=== PATIENT | female | born 1955 | race Caucasian/White ===

== ENCOUNTER 2017-12-14 16:59 | Inpatient (IN) | payer OTHER ==
[2017-12-14 17:05] VITALS: BMI 31.9
[2017-12-14] MEDS ORDERED: SODIUM CHLORIDE 1,000 ML IV STA (18:09)
[2017-12-14] MEDS ORDERED: ACETAMINOPHEN 1000 MG/100 ML VIAL (NON FORMULARY) IVPB ONE (18:09)
[2017-12-14] MEDS ORDERED: SODIUM CHLORIDE FOR INHALATION 3 ML VIAL.NEB IH ONE (18:09)
--- NOTE | 2017-12-14 18:18 | PDOC ---
History of Present Illness - General History Source: Patient Exam Limitations: No Limitations - History of Present Illness Initial Comments: 12/14/17 18:38 The patient is a 62 year old female, with a significant past medical history of hypertension, diabetes, hyperlipidemia, CAD who presents to the emergency department with cough and fever (Tmax 104F) starting yesterday early afternoon. She reports the cough is productive of white sputum and reproduces abdominal discomfort. She states she can not sleep at night secondary to excessive coughing. She reports her had a cough a few weeks ago but states "his was not this bad'. She also reports a "swollen ball" to her right submandibular region. She also reports bilateral ear pain. She reportedly received her vaccinations in October 2017. She denies chest pain, shortness of breath, headache and dizziness. She denies chills, nausea, vomit, diarrhea and constipation. She denies dysuria, frequency , urgency and hematuria. Allergies: NKDA <Angie Reece - Last Filed: 12/14/17 18:44> <Donnell Reynaga - Last Filed: 12/19/17 21:39> - General Chief Complaint: Respiratory Stated Complaint: COUGHING Time Seen by Provider: 12/14/17 17:52 Past History <Angie Reece - Last Filed: 12/14/17 18:44> - Past Medical History Anemia: Yes Asthma: No Cancer: No Cardiac Disorders: Yes CVA: No COPD: No CHF: No Dementia: No Diabetes: Yes GI Disorders: No Disorders: No HTN: Yes Hypercholesterolemia: Yes Liver Disease: No Seizures: No Thyroid Disease: No - Surgical History Abdominal Surgery: No Appendectomy: No Cardiac Surgery: Yes (STENTS) Cholecystectomy: No Lung Surgery: No Neurologic Surgery: No Orthopedic Surgery: Yes (FOOT SURGERY) - Immunization History Immunization Up to Date: Yes (flu / pna ) - Suicide/Smoking/Psychosocial Hx Smoking Status: No Smoking History: Never smoked Have you smoked in the past 12 months: No Number of Cigarettes Smoked Daily: 0 Hx Alcohol Use: No Drug/Substance Use Hx: No Substance Use Type: None Hx Substance Use Treatment: No <Donnell Reynaga - Last Filed: 12/19/17 21:39> - Past Medical History Allergies/Adverse Reactions: Allergies Allergy/AdvReac Type Severity Reaction Status Date / Time No Known Drug Allergies Allergy Verified 12/14/17 17:04 Home Medications: Ambulatory Orders Glipizide 10 mg PO DAILY 01/02/12 Saxagliptin HCl [Onglyza] 5 mg PO HS 01/02/12 Aspirin [ASA -] 81 mg PO DAILY 08/19/12 Insulin Glargine,Hum.rec.anlog [Lantus] 60 unit SCJ HS 08/19/12 Lisinopril [Prinivil] 10 mg PO BID 08/19/12 Amlodipine Besylate 10 mg PO DAILY 12/14/17 Atorvastatin Ca [Lipitor] 80 mg PO HS 12/14/17 Clopidogrel Bisulfate [Plavix -] 75 mg PO DAILY 12/14/17 Ferrous Sulfate 325 mg PO DAILY 12/14/17 Insulin NPH Hum/Reg Insulin Hm [Novolin 70-30 100 Unit/ml Vial] 30 unit SQ DAILY 12/14/17 Metoprolol Succinate [Toprol XL -] 25 mg PO DAILY 12/14/17 Sitagliptin Phosphate [Januvia -] 100 mg PO DAILY 12/14/17 Amox-Tr/K Cl [Augmentin 875-125mg Tablet -] 1 tab PO BID@0800,1730 #20 tablet Clindamycin [Cleocin -] 300 mg PO TID #30 capsule 12/17/17 Furosemide [Lasix -] 40 mg PO DAILY #14 tablet 12/17/17 Review of Systems - Review of Systems Able to Perform ROS?: Yes Comments:: 12/14/17 18:40 GENERAL/CONSTITUTIONAL: (+) fever. No chills. No weakness. HEAD, EYES, EARS, NOSE AND THROAT: (+) bilateral ear pain, no discharge. No change in vision. No ear pain or discharge. No sore throat. CARDIOVASCULAR: No chest pain or shortness of breath. RESPIRATORY: (+) productive cough, No wheezing, or hemoptysis. GASTROINTESTINAL: No nausea, vomiting, diarrhea or constipation. GENITOURINARY: No dysuria, frequency, or change in urination. MUSCULOSKELETAL: No joint or muscle swelling or pain. No neck or back pain. SKIN: No rash NEUROLOGIC: No headache, vertigo, loss of consciousness, or change in strength/ sensation. ENDOCRINE: No increased thirst. No abnormal weight change. HEMATOLOGIC/LYMPHATIC: No anemia, easy bleeding, or history of blood clots. ALLERGIC/IMMUNOLOGIC: No hives or skin allergy. <Angie Reece - Last Filed: 12/14/17 18:44> *Physical Exam - Vital Signs Last Vital Signs Temp Pulse Resp BP Pulse Ox 100.0 F H 108 H 20 147/84 97 12/14/17 17:00 12/14/17 17:00 12/14/17 17:00 12/14/17 17:00 12/14/17 17:00 - Physical Exam Comments: 12/14/17 18:41 GENERAL: Awake, alert, and fully oriented, in no acute distress HEAD: No signs of trauma EYES: PERRLA, EOMI, sclera anicteric, conjunctiva clear ENT: Auricles normal inspection, hearing grossly normal, nares patent, oropharynx clear without exudates. Moist mucosa NECK: (+) Right parotid gland swelling mild tenderness to palpation. Normal ROM , supple, no lymphadenopathy, JVD, or masses LUNGS: Breath sounds equal, clear to auscultation bilaterally. No wheezes, and no crackles HEART: Regular rate and rhythm, normal S1 and S2, no murmurs, rubs or gallops ABDOMEN: Soft, nontender, normoactive bowel sounds. No guarding, no rebound. No masses EXTREMITIES: Normal range of motion, no edema. No clubbing or cyanosis. No cords, erythema, or tenderness NEUROLOGICAL: Cranial nerves II-XII intact. Normal speech, normal gait. Sensation intact in upper and lower extremities. 5/5 motor strength in upper and lower extremities. No pronator drift. Finger to nose intact. Rapid alternations intact. SKIN: Warm, Dry, normal turgor, no rashes or lesions noted. <Angie Reece - Last Filed: 12/14/17 18:44> - Vital Signs Last Vital Signs Temp Pulse Resp BP Pulse Ox 100.0 F H 108 H 20 147/84 97 12/14/17 17:00 12/14/17 17:00 12/14/17 17:00 12/14/17 17:00 12/14/17 17:00 <Donnell Reynaga - Last Filed: 12/19/17 21:39> ED Treatment Course - LABORATORY CBC & Chemistry Diagram: 12/17/17 06:00 12/17/17 06:00 - RADIOLOGY Radiology Studies Ordered: Category Date Time Status CHEST PA & LAT [RAD] Stat Radiology 12/14/17 18:09 Ordered SOFT TISSUE NECK AND HEAD US [US] Stat Ultrasound 12/14/17 18:10 Ordered <Donnell Reynaga - Last Filed: 12/19/17 21:39> Medical Decision Making - Medical Decision Making 12/14/17 18:14 A portion of this note was documented by scribe services under my direction. I have reviewed the details of the note, within reason, and agree with the documentation with the following case summary and management plan written by me. Patient treated in the ED. Nursing notes are reviewed and incorporated into the medical decision-making. Vital signs reviewed. Peripheral IV access obtained by the nurse, laboratory studies are drawn and sent, reviewed and interpreted by myself. Vital Signs Temp Pulse Resp BP Pulse Ox 100.0 F H 108 H 20 147/84 97 12/14/17 17:00 12/14/17 17:00 12/14/17 17:00 12/14/17 17:00 12/14/17 17:00 62-year-old female with past medical history of hypertension, diabetes, hyperlipidemia, coronary disease presents with cough and fever 104 since yesterday. Patient reports some chest congestion and most recently right parotid gland swelling. Reported was mildly tender. Had a positive sick contact with her but not nearly as sick. Patient reports that she has been vaccinated. We'll rule out viral syndrome versus bronchitis versus pneumonia. I suspect the patient also has parotitis. We'll obtain an ultrasound of the gland. Labs including blood cultures. Influenza swab. Reassess. 12/14/17 19:01 Pt signed out to Dr. Vargas for further management and disposition. <Donnell Reynaga - Last Filed: 12/19/17 21:39> *DC/Admit/Observation/Transfer - Attestations Scribe Attestion: 12/14/17 18:42 Documentation prepared by Angie Reece, acting as medical claims analyst for Donnell Reynaga MD, <Angie Reece - Last Filed: 12/14/17 18:44> <Donnell Reynaga - Last Filed: 12/19/17 21:39> Diagnosis at time of Disposition: Sialadenitis, Pulmonary edema, Allergic reaction to contrast dye - Discharge Dispostion Disposition: HOME Condition at time of disposition: Stable
[2017-12-14] MEDS ORDERED: ACETAMINOPHEN INJECTION 100 ML IVPB ONE (18:27)
[2017-12-14] MEDS ORDERED: diphenhydrAMINE HCL 25 MG CAPSULE (FP) PO ONE ×2 (18:50→18:51)
[2017-12-14 19:04] LABS: BASO % 0.3 % (0-2.0); EOS % 2.4 % (0-4.5); HEMATOCRIT 27.4 % (32.4-45.2); HEMOGLOBIN 9.2 GM/dL (10.7-15.3); LYMPH % 9.6 % (8-40); MCH 28.9 pg (25.7-33.7); MCHC 33.7 g/dl (32.0-36.0); MEAN PLT VOLUME 10.2 fl (7.5-11.1); MONO % 6.7 % (3.8-10.2); PLATELET COUNT 169 K/MM3 (134-434); RBC 3.19 M/mm3 (3.60-5.2); RDW 14.9 % (11.6-15.6); WHITE BLOOD COUNT 7.7 K/mm3 (4.0-10.0)
[2017-12-14 19:48] LABS: ALBUMIN 3.2 g/dl (3.4-5.0); ANION GAP 8 (8-16); BLOOD UREA NITROGEN 27 mg/dL (7-18); CALCIUM 7.7 mg/dL (8.5-10.1); CHLORIDE 101 mmol/L (98-107); CO2 23 mmol/L (21-32); POTASSIUM 4.6 mmol/L (3.5-5.1); SODIUM 132 mmol/L (136-145)
[2017-12-14 19:51] LABS: ALK PHOS 105 U/L (45-117); BILIRUBIN,TOTAL 0.5 mg/dL (0.2-1.0); CREATININE 1.1 mg/dL (0.55-1.02); SGOT/AST 64 U/L (15-37); SGPT/ALT 87 U/L (12-78); TOT PROT 6.8 g/dl (6.4-8.2)
[2017-12-14 20:15] LABS: GLUCOSE,RANDOM 319 mg/dL (74-106)
--- NOTE | 2017-12-14 20:46 | PDOC ---
*Physical Exam - Vital Signs Last Vital Signs Temp Pulse Resp BP Pulse Ox 100.0 F H 108 H 20 147/84 98 12/14/17 17:00 12/14/17 17:00 12/14/17 17:00 12/14/17 17:00 12/14/17 18:58 ED Treatment Course - LABORATORY CBC & Chemistry Diagram: 12/15/17 02:45 12/15/17 01:05 - ADDITIONAL ORDERS Additional order review: Laboratory Results 12/14/17 18:18 Sodium 132 L Potassium 4.6 Chloride 101 Carbon Dioxide 23 D Anion Gap 8 BUN 27 H Creatinine 1.1 H Creat Clearance w eGFR 50.17 Random Glucose 319 H* Calcium 7.7 L Total Bilirubin 0.5 D AST 64 H D ALT 87 H D Alkaline Phosphatase 105 Total Protein 6.8 Albumin 3.2 L 12/14/17 18:36 Influenza Types A,B Antigen (ANDREA) - Final Nasopharyngeal Swab - Final 12/14/17 18:18 RBC 3.19 L MCV 86.0 MCHC 33.7 RDW 14.9 D MPV 10.2 Neutrophils % 81.0 D Lymphocytes % 9.6 D Monocytes % 6.7 Eosinophils % 2.4 Basophils % 0.3 - Medications Given in the ED: ED Medications Discontinued Medications Generic Name Dose Route Start Last Admin Trade Name Moriah PRN Reason Stop Dose Admin Acetaminophen 1,000 mg 12/14/17 18:09 12/14/17 19:08 Ofirmev Injection - IVPB 12/14/17 18:10 1,000 mg ONCE ONE Administration Diphenhydramine HCl 25 mg 12/14/17 18:50 12/14/17 19:09 Benadryl - PO 12/14/17 18:51 25 mg ONCE ONE Administration Sodium Chloride 1,000 mls @ 1,000 mls/hr 12/14/17 18:09 12/14/17 19:08 Normal Saline - IV 12/14/17 19:08 1,000 mls/hr ASDIR STA Administration Sodium Chloride 3 ml 12/14/17 18:09 12/14/17 19:08 Normal Saline For Inhalation - IH 12/14/17 18:10 3 ml ONCE ONE Administration Medical Decision Making - Medical Decision Making 12/14/17 20:44 I received pt on signout. Pt comes with submental swelling,on the right side of her face and she has pain at the floor of her mouth; labs show DM blood sugar 300s; LFT minimally elevated - likely viral syndrome. 12/14/17 20:45 CXR clear; US neck pending 12/14/17 20:45 Pt has anemia. MCV and RDW are normal. She will be referred to GI and her PMD to work that up. 12/14/17 20:46 US neck shows nothing conclusive; so she will be semt for a CT soft tissue with contrast: Patient Name: DEVEN PAREKH THIS IS A PRELIMINARY REPORT FROM [facility] EXAM: Soft tissue neck ultrasound IMAGES:20 DATE OF EXAM: 2017-12-14 20:08:30 REASON FOR EXAM: Evaluate parotid gland COMPARISON: None Findings: 3.8 cm x 3.2 cm x 1.8 cm solid-appearing mass in right upper neck with hypervascularity. Its exact location is uncertain on these ultrasound images. Reportedly, it is superior and lateral to the thyroid gland. CT is suggested for further evaluation. THIS DOCUMENT HAS BEEN ELECTRONICALLY SIGNED 12/14/17 23:[address] scan and was complaining of SOB; She had rales bilat throughout. She was at the edge of the bed breathing heavily. We trasferred her to room 10. BiPAP called. 0.3mg subcutaneous epi 1:1000 given, SL NTG 2 given; 1 inch nitropaste given. Kendrick placed with 800 ml urine output; 40mg Lasix given; pt's CXR shows bilat patchy effusion. Unclear if this was all CHF/ overload from the 1L saline she was given or allergic reaction to the IV contrast. Pt will be admitted to the hospitalist. In the end, pt has a submental salivary duct stone: Patient Name: DEVEN PAREKH THIS IS A PRELIMINARY REPORT FROM [facility] EXAM: CT neck with contrast IMAGES:448 DATE OF EXAM: 2017-12-14 23:35:10 REASON FOR EXAM: Rule out mass or abscess COMPARISON: None Findings: *Enlargement of the right submandibular gland with surrounding edema, compatible with sialadenitis. Some of the edema extends to the right parotid gland. No evidence for abscess or fluid collections. Mild bilateral cervical adenopathy and superior mediastinal adenopathy. Left parotid gland, left submandibular gland, and thyroid gland are unremarkable. Larynx and epiglottis, and prevertebral soft tissues appear normal. Atelectasis and fibrotic changes in lungs apices with mild interstitial edema. Mild mucosal thickening in the ethmoid sinuses and maxillary sinuses. THIS DOCUMENT HAS BEEN ELECTRONICALLY SIGNED 12/15/17 01:28 Pt has no salivary duct stones, and no abscesses. 12/15/17 02:12 Pt has CXR that shows bilat patchy effusions. She denies CP at this time, EKG shows normal ST. Minimal elevation os ST in only lead V1 Pt has +trop and elevated CPK. 12/15/17 03:48 Pt likely had an MS earlier, causing her trop, CK and CK to be elevated. MS/ cardiac injury may have resulted in SOB and CHF exacerbation. Pt then went into APE. Likely, she didn't have an adverse reaction to the IV contrast dye, as she has no red rash and no swelling of her throat or tongue. Pt's aPTT is 177; however, the nurse todd the aptt tube after administering the 5000U heparin bolus. Now we will trun off the heparin drip and in 15 minutes, we will check aPTT once again to get an accurate result. 12/15/17 04:21 BNP 1500. Pt has been accepted to tele by hospitalists, but there are no beds. *DC/Admit/Observation/Transfer Diagnosis at time of Disposition: Sialadenitis, Pulmonary edema, Allergic reaction to contrast dye - Discharge Dispostion Condition at time of disposition: Guarded Admit: Yes - Referrals - Patient Instructions - Post Discharge Activity
[2017-12-15] MEDS ORDERED: EPINEPHrine/PF 1 MG/1 ML (1:1,000) AMPULE ONE (00:22)
[2017-12-15] MEDS ORDERED: ALBUTEROL SO4 2.5/IPRATROPIUM 0.5 INH SOL 3 ML VIAL.NEB. NEB ONE (00:23)
[2017-12-15] MEDS ORDERED: NITROGLYCERIN 2% OINTMENT - 1GM PACKET TD ONE ×2 (00:28→02:22)
[2017-12-15] MEDS ORDERED: FUROSEMIDE 40 MG/4 ML INJECTABLE VIAL ONE ×2 (00:28→06:33)
[2017-12-15] MEDS ORDERED: NITROGLYCERIN SUBLINGUAL 1/150 0.4 MG TAB SL ONE (01:00)
[2017-12-15 01:45] LABS: ALBUMIN 3.5 g/dl (3.4-5.0); ANION GAP 12 (8-16); BILIRUBIN,TOTAL 0.4 mg/dL (0.2-1.0); BLOOD UREA NITROGEN 24 mg/dL (7-18); CALCIUM 8.1 mg/dL (8.5-10.1); CHLORIDE 101 mmol/L (98-107); CO2 23 mmol/L (21-32); CREATININE 0.8 mg/dL (0.55-1.02); GLUCOSE,RANDOM 249 mg/dL (74-106); SGPT/ALT 89 U/L (12-78); SODIUM 136 mmol/L (136-145); TOT PROT 7.3 g/dl (6.4-8.2)
[2017-12-15 01:57] LABS: ALK PHOS 100 U/L (45-117)
[2017-12-15 01:59] LABS: POTASSIUM 4.4 mmol/L (3.5-5.1)
[2017-12-15 02:00] LABS: SGOT/AST 89 U/L (15-37)
[2017-12-15] MEDS ORDERED: CLOPIDOGREL BISULFATE 300 MG TABLET PO ONE (02:10)
[2017-12-15] MEDS ORDERED: ASPIRIN 81 MG CHEWABLE TABLETS PO ONE (02:10)
[2017-12-15] MEDS ORDERED: HEPARIN NA (PORCINE) 5,000 UNITS/ML 1ML VIAL IVPUSH PRN ×2 (02:11→10:35)
[2017-12-15] MEDS ORDERED: HEPARIN NA (PORCINE) 5,000 UNITS/ML 1ML VIAL IVPUSH ONE (02:11)
[2017-12-15] MEDS ORDERED: HEPARIN SOD,PORK IN 0.45% NACL 25,000 UNITS/500 ML INFUS.BAG IVPB SCH (02:15)
[2017-12-15] MEDS ORDERED: ASPIRIN 81 MG CHEWABLE TABLETS ONE (02:22)
[2017-12-15] MEDS ORDERED: METOPROLOL TARTRATE 5 MG/5 ML VIAL IVPUSH ONE ×2 (02:22→03:22)
[2017-12-15] MEDS ORDERED: CLOPIDOGREL BISULFATE 300 MG TABLET ONE (02:22)
[2017-12-15] MEDS ORDERED: HEPARIN NA (PORCINE) 5,000 UNITS/ML 1ML VIAL ONE ×2 (02:22→10:32)
[2017-12-15] MEDS ORDERED: METOPROLOL TARTRATE 5 MG/5 ML VIAL ONE ×2 (02:23→03:23)
[2017-12-15] MEDS ORDERED: FUROSEMIDE 40 MG/4 ML INJECTABLE VIAL IVPUSH ONE (02:23)
[2017-12-15] MEDS ORDERED: EPINEPHrine 1:1,000 1 MG/1 ML - 30ML VIAL (INJECTION) SQ ONE (02:23)
[2017-12-15 02:55] LABS: BASO % 0.3 % (0-2.0); EOS % 0.9 % (0-4.5); HEMATOCRIT 29.2 % (32.4-45.2); HEMOGLOBIN 9.7 GM/dL (10.7-15.3); LYMPH % 5.3 % (8-40); MCH 28.6 pg (25.7-33.7); MCHC 33.3 g/dl (32.0-36.0); MEAN CELL VOLUME 85.9 fl (80-96); MEAN PLT VOLUME 10.1 fl (7.5-11.1); MONO % 6.6 % (3.8-10.2); NEUT % 86.9 % (42.8-82.8); PLATELET COUNT 168 K/MM3 (134-434); RDW 15.1 % (11.6-15.6); WHITE BLOOD COUNT 8.3 K/mm3 (4.0-10.0)
--- NOTE | 2017-12-15 03:48 | HP ---
CHIEF COMPLAINT: R LN swollen, fever at home PCP: Dr. Aneta Butcher Other providers - has a [facility] and Vascular surgeon at [facility], but pt can not recall name HISTORY OF PRESENT ILLNESS: 62yo woman originally from [place] (emigrated to [place] in 1969's) with PMH of IDDM, HTN, suspected CHF, CAD s/p TX and 3xstents 2 years ago, vasculopathy with L toe amputations who presents to the ED with acute onset of R submandibular LN swelling and tenderness in the setting of 100.4 fever at home with productive cough. She reports that her was sick recently, and think she caught sick from him. Denies nausea, vomiting, diarrhea, melena, hematochezia. Reports chest pain only with cough; no chest tightness/pressure/discomfort. She reports receiving all her vaccinations, including the Influenza vaccine earlier in the year. While in the ED, she was sent for CT neck with contrast and was given 1L of fluids. After the scan she became short of breath and developed respiratory distress. She received epinephrine due to concern for contrast to allergy. She was placed on BiPAP and given Lasix IV. Recent Travel: No PAST MEDICAL HISTORY: IDDM PVD HTN CAD PAST SURGICAL HISTORY: remote hysterectomy multiple cardiac stents LLE stent L transmetatarsal amputation Social History: Smoking: never Alcohol: denies Drugs: denies Family History: significant cardiac history on maternal side Allergies: No Known Drug Allergies Allergy (Verified 12/14/17 17:04) HOME MEDICATIONS: Home Medications Medication Instructions Recorded Glipizide 10 mg PO DAILY 01/02/12 Saxagliptin HCl [Onglyza] 5 mg PO HS 01/02/12 Aspirin [ASA -] 81 mg PO DAILY 08/19/12 Insulin Glargine,Hum.rec.anlog 60 unit SCJ HS 08/19/12 [Lantus] Lisinopril [Prinivil] 10 mg PO BID 08/19/12 Metformin HCl [Glucophage] 850 mg PO TID 08/19/12 Amlodipine Besylate 10 mg PO DAILY 12/14/17 Atorvastatin Ca [Lipitor] 80 mg PO HS 12/14/17 Clopidogrel Bisulfate [Plavix -] 75 mg PO DAILY 12/14/17 Ferrous Sulfate 325 mg PO DAILY 12/14/17 Insulin NPH Hum/Reg Insulin Hm 30 unit SQ DAILY 12/14/17 [Novolin 70-30 100 Unit/ml Vial] Metoprolol Succinate [Toprol Xl -] 25 mg PO DAILY 12/14/17 Sitagliptin Phosphate [Januvia -] 100 mg PO DAILY 12/14/17 REVIEW OF SYSTEMS CONSTITUTIONAL: +fever, Absent: chills, diaphoresis, generalized weakness, malaise, loss of appetite, weight change HEENT: Absent: rhinorrhea, nasal congestion, throat pain, throat swelling, difficulty swallowing, mouth swelling, ear pain, eye pain, visual changes CARDIOVASCULAR: Absent: chest pain, syncope, palpitations, irregular heart rate, lightheadedness , peripheral edema RESPIRATORY: +cough, sob, trevizo Absent: orthopnea, wheezing, stridor, hemoptysis GASTROINTESTINAL: Absent: abdominal pain, abdominal distension, nausea, vomiting, diarrhea, constipation, melena, hematochezia GENITOURINARY: Absent: dysuria, frequency, urgency, hesitancy, hematuria, flank pain, genital pain MUSCULOSKELETAL: Absent: myalgia, arthralgia, joint swelling, back pain, neck pain SKIN: Absent: rash, itching, pallor HEMATOLOGIC/IMMUNOLOGIC: Absent: easy bleeding, easy bruising, lymphadenopathy, frequent infections ENDOCRINE: Absent: unexplained weight gain, unexplained weight loss, heat intolerance, cold intolerance NEUROLOGIC: Absent: headache, focal weakness or paresthesias, dizziness, unsteady gait, seizure, mental status changes, bladder or bowel incontinence PSYCHIATRIC: Absent: anxiety, depression, suicidal or homicidal ideation, hallucinations. PHYSICAL EXAMINATION Vital Signs - 24 hr 12/14/17 12/14/17 12/15/17 17:00 18:58 00:30 Temperature 100.0 F H Pulse Rate 108 H Respiratory 20 Rate Blood Pressure 147/84 O2 Sat by Pulse 97 98 100 Oximetry (%) 12/15/17 12/15/17 02:30 03:38 Temperature Pulse Rate Respiratory Rate Blood Pressure 182/81 131/55 O2 Sat by Pulse Oximetry (%) GENERAL: nad, on BiPAP, looks comfortable, aaox3 HEAD: Normal with no signs of trauma. EYES: PERRLA, EOMI, sclera anicteric, conjunctiva clear ENT: oropharynx clear without exudates. Moist mucous membranes. NECK: supple, right submandibular LN enlarged, very ttp, no JVD LUNGS: bilateral rales, no accessory muscle use HEART: rrr, normal s1/s2, no m/r/g ABDOMEN: obese, soft, ntnd, normoactive bowel sounds : meza catheter draining light yellow urine, no sediment UPPER EXTREMITIES: 2+ radial pulses, wwp, no edema. LOWER EXTREMITIES: chronic venous stasis, 2+ DP pulses, wwp, 2+ pedal edema L>R , L transmetatarsal amputation with preservation of 5th metatarsal NEUROLOGICAL: Cranial nerves II-XII intact. Normal speech. no facial droop, 5/ 5 motor strength in all four extremities, sensation intact CBC, BMP 12/15/17 02:45 12/15/17 01:05 Hepatic Panel Total Bilirubin 0.4 mg/dL (0.2-1.0) 12/15/17 01:05 AST 89 U/L (15-37) H D 12/15/17 01:05 ALT 89 U/L (12-78) H 12/15/17 01:05 Alkaline Phosphatase 100 U/L (45-117) 12/15/17 01:05 Albumin 3.5 g/dl (3.4-5.0) 12/15/17 01:05 IMAGING: CT neck (preliminary read): Enlargement of the right submandibular gland with surrounding edema, compatible with sialadenitis. Some of the edema extends to the right parotid gland. No evidence for abscess or fluid collections. CXR: interval increase in pulmonary congestion on second radiograph, no e/o focal consolidations or pleural effusions EKG: NSR, poor R wave progression Active Medications Furosemide (Lasix Injection -) 40 mg IVPUSH BID@0600,1400 GAUDENCIO Last Admin: 12/15/17 06:56 Dose: 40 mg Heparin Sodium (Porcine) (Heparin -) 1,000 unit IVPUSH PRN PRN PRN Reason: Heparin HEPARIN SOD,PORK IN 0.45% NACL (Heparin-1/2ns 25,000 Units/500) 25,000 units in 500 mls @ 20 mls/hr IVPB TITR GAUDENCIO; 1,000 UNITS/HR PRN Reason: Protocol Last Titration: 12/15/17 03:41 Dose: 800 units/hr, 16 mls/hr Azithromycin 500 mg/ Dextrose 250 mls @ 250 mls/hr IVPB DAILY GAUDENCIO Last Admin: 12/15/17 06:57 Dose: 250 mls/hr CEFTRIAXONE 1 G/50 ML PREMIX (Ceftriaxone 1 Gm-D5w Bag) 50 mls @ 100 mls/hr IVPB DAILY GAUDENCIO Last Admin: 12/15/17 06:57 Dose: 100 mls/hr Insulin Aspart (Novolog Vial Sliding Scale -) 1 vial SQ TIDAC GAUDENCIO PRN Reason: Protocol Last Admin: 12/15/17 07:39 Dose: 8 unit ASSESSMENT/PLAN: 62yo woman with PMH of IDDM, HTN, CAD s/p TX/stents, suspected CHF, PVD who p/w low grade fever (100.4) and enlarged, exquisitely tender R submandibular LN likely 2/2 to recent URI symptoms and found to have elevated troponins in the setting suspected CHF exacerbation. #CHF exacerbation, appears volume overloaded -ECHO -repeat BNP -Aroldo strict I&Os, daily weights -Lasix 40mg IVP BID -Confirm home med doses - restart Metoprolol, lisinopril, Norvasc #r/o NSTEMI, elevated troponins likely 2/2 to CHF exacerbation, no acute ST changes on EKG, absent chest pain/discomfort In ED s/p ASA, Plavix, and heparin -Cardiology consulted -c/w heparin gtt -Repeat EKG in AM -trend trops to peak #sob, fever - possible URI with superimposed PNA, Flu neg -Trend WBC, fever curve -Infectious w/u: urine Ag for PNA, Respiratory viral panel, urine/blood/sputum Cx -Ceftriaxone and Azithromycin for CAP and atypical coverage -O2 therapy PRN #submandibular gland enlargement/ttp -r/o mumps -HIV testing #transaminitis - 2/2 to congestion vs infectious etiology -Abdominal U/S -hepatic panel #CAD s/p stents -cont ASA, Plavix, Lipitor #IDDM -Hold home meds -Levemir 20mg in AM + ISS/BGM TIDAC #guaiac postive stool - pt on home Fe supplements; monitor H&H for now #FEN: PO hydration / lytes wnl / Na controlled, DM diet #DVT PPX - on heparin gtt d/w Dr. Ximena Esparza MD PGY1 - Internal Medicine Visit type - Emergency Visit Emergency Visit: Yes ED Registration Date: 12/15/17 Care time: The patient presented to the Emergency Department on the above date and was hospitalized for further evaluation of their emergent condition. - New Patient This patient is new to me today: Yes Date on this admission: 12/15/17 - Critical Care Critical Care patient: No
--- NOTE | 2017-12-15 04:19 | PN ---
Teaching Attending Note Name of Resident: Nathaly Esparza ATTENDING PHYSICIAN STATEMENT I saw and evaluated the patient. Chart, data, imaging reviewed. I reviewed the resident's note and discussed the case with the resident. I agree with the resident's findings and plan as documented. SUBJECTIVE: 62yo woman with HTN, uncontrolled DM, PVD s/o multiple toes amputations, CAD s/ p multiple stent placement 2 years ago came to hospital complaining of fevers, and right sided submandibular swelling and tenderness for about 1-2 days. She reports that her was recently sick and thinks that she may have gotten sick from him. Patient was sent to CT scan of neck, received one liter of IV fluid and subsequently developed respiratory distress, given epinephrine sc due to fear of allergic reaction to contrast. Subseqently c/o some chest pain/ discomfort. Appears to be more comfortable in sitting position. OBJECTIVE: Last Vital Signs Temp Pulse Resp BP Pulse Ox 100.0 F H 108 H 20 131/55 100 12/14/17 17:00 12/14/17 17:00 12/14/17 17:00 12/15/17 03:38 12/15/17 00:30 general- appears mildly uncomfortable, nontoxic heent -no sinus tenderness right submandibular LN very tender to palpation neck -supple, no jvd cv - s1+ s2+ rrr chest- crackles appreciated b/l upon chest auscultation abdomen- obese, nontender, BS+ skin- no rashes appreciated Ext- B/l pedal edema 2+ Meza catheter + Abnormal Lab Results 12/14/17 12/14/17 12/15/17 18:18 18:18 01:05 RBC 3.19 L Hgb 9.2 L D Hct 27.4 L D Neutrophils % Lymphocytes % PTT (Actin FS) Sodium 132 L BUN 27 H 24 H Creatinine 1.1 H Random Glucose 319 H* 249 H Calcium 7.7 L 8.1 L AST 64 H D 89 H D ALT 87 H D 89 H Creatine Kinase 1190 H CK-MB (CK-2) 7.386 H Troponin I 0.21 H B-Natriuretic Peptide Albumin 3.2 L 12/15/17 12/15/17 12/15/17 02:45 02:45 02:45 RBC 3.40 L Hgb 9.7 L Hct 29.2 L Neutrophils % 86.9 H Lymphocytes % 5.3 L D PTT (Actin FS) 177.7 H Sodium BUN Creatinine Random Glucose Calcium AST ALT Creatine Kinase CK-MB (CK-2) Troponin I B-Natriuretic Peptide 1576.[address] of neck- Enlargement of the right submandibular gland with surrounding edema , compatible with sialadenitis. Some of the edema extends to the right parotid gland. No evidence for abscess or fluid collections. CXR - second cxr appears to have increased b/l pulmonary edema with pulmonary vascular congestion compared to first one ekg- nsr, poor r wave progression ASSESSMENT AND PLAN: #Likely viral URI wit possible superimposed PNA. Tmax at home was clarified to be 100.4F and not 104F. Likely contracted viral URI from . Right tender LN may be 2/2 viral URI. Unlikely to be mumps since patient reports receiving all her routine vaccinations. -blood cultures x2 -UA, urine culture -nasalpharyngeael PCR for viruses -sputum culture -urine legionella antigen -azithromycin 500mg po daily -ceftriaxone 1g IV daily -Mumps IgG , IgM pending to r/o acute infection, although unlikely #Possible NSTEMI. likely CHF exacerbation after IV fluid infusion. Known CAD with presumed baseline CHF, although we have no EKG on file. Mildly positive troponin. CLinical improvement after IV furosemide. -ASA -Clopidogrel -Bblocker -ACEi -furosemide 40mg IV bid -2g Na diet -transthoracic echo -2g Na diet -1 liter fluid restriction -agree with meza -I/O -daily weights -cardiology evaluation -repeat CXR #Uncontrolled DM -tight insulin sliding scale -baseline long acting insulin -A1c #Right sided submandibular swelling- may be viral, r/o stone impaction -if no resolution with time, consider ENT evaluation for stone impaction #DVT ppx- already on heparin drip #Diet - 2g Na, Diabetic diet
[2017-12-15 05:10] LABS: URINE APPEARANCE SLCLOUDY; URINE BILIRUBIN NEGATIVE (NEGATIVE); URINE BLOOD 2+ (NEGATIVE); URINE COLOR LTYELLOW; URINE GLUCOSE (UA) NEGATIVE (NEGATIVE); URINE KETONE NEGATIVE (NEGATIVE); URINE LEUK ESTERASE NEGATIVE (NEGATIVE); URINE NITRITE NEGATIVE (NEGATIVE); URINE PROTEIN NEGATIVE (NEGATIVE); URINE UROBILINOGEN NEGATIVE mg/dL (0.2-1.0)
[2017-12-15 05:12] LABS: URINE BACTERIA FEW /hpf (NONE SEEN); URINE MUCUS RARE
[2017-12-15] MEDS ORDERED: FUROSEMIDE 40 MG/4 ML INJECTABLE VIAL IVPUSH SCH (06:00)
[2017-12-15] MEDS ORDERED: CEFTRIAXONE 1 G/50 ML PREMIX 50 ML IVPB SCH (06:30)
[2017-12-15] MEDS ORDERED: AZITHROMYCIN IVPB 500 MG in DEXTROSE 5%-WATER - 250 ML IVPB SCH (06:30)
[2017-12-15] MEDS ORDERED: AZITHROMYCIN IVPB 250 ML IVPB ONE (06:33)
[2017-12-15] MEDS ORDERED: CEFTRIAXONE 1 GM/50 ML BAG ONE (06:33)
[2017-12-15] MEDS: INSULIN SLIDING SCALE (NOVOLOG) 1 VIAL SQ SCH ×3 (07:39→17:36)
[2017-12-15] MEDS ORDERED: INSULIN (NOVOLOG) ASPART 100 UNITS/ML 10ML VIAL ONE ×3 (07:41→17:37)
[2017-12-15] MEDS ORDERED: INSULIN DETEMIR 100 UNITS/ML MDV SQ ONE ×3 (08:46→21:58)
--- NOTE | 2017-12-15 09:10 | PN ---
Progress Note (short form) - Note Progress Note: Subjective: reports fever 104 at home . fever in ER. SOB is better now , but has chest tightness which started before coming to hospital and improved now . reprots LE edema. Objective: Vital Signs: Last Vital Signs Temp Pulse Resp BP Pulse Ox 98.6 F 95 H 20 133/67 98 12/15/17 07:10 12/15/17 07:10 12/15/17 07:10 12/15/17 07:10 12/15/17 07:10 I&O: Intake & Output 12/12/17 12/13/17 12/14/17 12/15/17 23:59 23:59 23:59 23:59 Intake Total 1500 Output Total 2400 Balance -900 Weight 198 lb Physical Exam: NAD HEENT: R submandibular erythema , tenderness and mass like bulge . No LAP in L . parotids are nl. MMM, no JVD , no facial droop, EOMI, round equal pupils Cv : RRR, 2/6 Sm at USB, NO JVD Lungs : decreased air entry at bases , minimal crackles at bases . Ext : 2+ pitting edema . amputation of 1st 4 toes on L Abd:soft, Nt, ND , NL BS Assessment/Plan: 62 y/o lady with HTN, IDDM , CAD , s/p [place], and stents, and other medical problems who presented with fever , and R submandibular swelling . She was found to have saialdenitis . Also developed pulm edema in Er after IVF , and trop elevation after sq Epi 1- Sialadenitis : could be bacterial given her high fever at home. - dc ceftriaxone and azithro and give unasyn . - follow blood cx - ID for Abx 2- Acute CHD exacerbation , not clear systolic or diastolic yet. developed after IVF administration , but has been having LE edema at home. suspect chronic component - given IV lasix and improved - I&O - 900 cc after 40 of lasix - give 40 of IV lasix - strict I&O - weight - Echo tomorrow - cont her BB , and ACEI - card 3- NSTEMI: - EKG after CT scan , showed minimal ST depression in I . no TWI, and NSR with NL axis - trop elevated but stabilized - check trop at 12 - cont ASa and plavix - was started on heparin gtt, cont until evaluate by card. - repeat EKG 4- NAEL : resolved 5- transaminitis : likely due to hepatic congestion . - monitor on diuresis 6- IDDM : her regimen was confirmed. - give levemir twice a day now . - SSI 7- HTN: cont lisinopril and toprol HLOC Visit type - Emergency Visit Emergency Visit: Yes ED Registration Date: 12/15/17 Care time: The patient presented to the Emergency Department on the above date and was hospitalized for further evaluation of their emergent condition. - New Patient This patient is new to me today: No - Critical Care Critical Care patient: No
[2017-12-15 09:32] LABS: INR 1.09 (0.82-1.09); PROTHROMBIN TIME (PATIENT) 12.3 SEC (9.98-11.88)
[2017-12-15 09:34] LABS: ACTIVATED PTT 38.9 SECONDS (26.9-34.4)
[2017-12-15] MEDS ORDERED: CEFTRIAXONE 1 GM in DEXTROSE 5%-WATER - 50 ML IVPB SCH (10:00)
[2017-12-15] MEDS ORDERED: amLODIPine BESYLATE 10 MG TABLET (FP) PO SCH (10:00)
[2017-12-15] MEDS ORDERED: METOPROLOL SUCCINATE 25 MG TAB.SR.24H (FP) PO SCH (10:00)
[2017-12-15] MEDS ORDERED: LISINOPRIL 10 MG TABLET (FP) PO SCH (10:00)
[2017-12-15] MEDS: CLOPIDOGREL BISULFATE 75 MG TABLET (FP) PO SCH (10:45)
[2017-12-15] MEDS: AMPICILLIN NA/SULBACTAM NA 3 GM in SODIUM CHLORIDE 100 ML IVPB SCH ×2 (10:49→18:38)
[2017-12-15] MEDS ORDERED: CLOPIDOGREL BISULFATE 75 MG TABLET (FP) ONE (10:51)
[2017-12-15] MEDS ORDERED: METOPROLOL SUCCINATE 50 MG TAB.SR.24H (FP) ONE (10:51)
[2017-12-15 11:07] LABS: HEMATOCRIT 29.2 % (32.4-45.2); HEMOGLOBIN 9.5 GM/dL (10.7-15.3); MCH 27.8 pg (25.7-33.7); MCHC 32.5 g/dl (32.0-36.0); MEAN CELL VOLUME 85.6 fl (80-96); PLATELET COUNT 170 K/MM3 (134-434); RBC 3.41 M/mm3 (3.60-5.2); RDW 14.9 % (11.6-15.6); WHITE BLOOD COUNT 7.1 K/mm3 (4.0-10.0)
--- NOTE | 2017-12-15 11:23 | CON.ID ---
Consult Consult Specialty:: infectious diseases Reason for Consultation:: submandibular swelling - History of Present Illness Chief Complaint: pain and swelling below the submandibular region History of Present Illness: 62yo woman ) with PMH of IDDM, HTN, suspected CHF, CAD s/p MS and 3xstents 2 years ago, vasculopathy with L toe amputations who presents to the ED with acute onset of R submandibular LN swelling and tenderness in the setting of 100.4 fever at home with productive cough. events noted in the emergency room from yesterday currently patient is stable but the swelling is very tender and swollen does not complain of any other issues at this point - History Source History Provided By: Patient Limitations to Obtaining History: No Limitations - Past Medical History Cardio/Vascular: Yes: HTN Endocrine: Yes: Diabetes Mellitus Dermatology: Yes: Other (Ulcer left foot) - Past Surgical History Past Surgical History: Yes: Amputation (2nd toes DIP joint B/L) - Alcohol/Substance Use Hx Alcohol Use: No - Smoking History Smoking history: Never smoked Have you smoked in the past 12 months: No Aproximately how many cigarettes per day: 0 Home Medications - Allergies Allergies/Adverse Reactions: Allergies Allergy/AdvReac Type Severity Reaction Status Date / Time No Known Drug Allergies Allergy Verified 12/14/17 17:04 - Home Medications Home Medications: Ambulatory Orders Glipizide 10 mg PO DAILY 01/02/12 Saxagliptin HCl [Onglyza] 5 mg PO HS 01/02/12 Aspirin [ASA -] 81 mg PO DAILY 08/19/12 Insulin Glargine,Hum.rec.anlog [Lantus] 60 unit SCJ HS 08/19/12 Lisinopril [Prinivil] 10 mg PO BID 08/19/12 Metformin HCl [Glucophage] 850 mg PO TID 08/19/12 Amlodipine Besylate 10 mg PO DAILY 12/14/17 Atorvastatin Ca [Lipitor] 80 mg PO HS 12/14/17 Clopidogrel Bisulfate [Plavix -] 75 mg PO DAILY 12/14/17 Ferrous Sulfate 325 mg PO DAILY 12/14/17 Insulin NPH Hum/Reg Insulin Hm [Novolin 70-30 100 Unit/ml Vial] 30 unit SQ DAILY 12/14/17 Metoprolol Succinate [Toprol Xl -] 25 mg PO DAILY 12/14/17 Sitagliptin Phosphate [Januvia -] 100 mg PO DAILY 12/14/17 Review of Systems - Review of Systems Constitutional: reports: Fever Eyes: reports: No Symptoms HENT: reports: Difficult Swallowing, Toothache, Other Neck: reports: No Symptoms Cardiovascular: reports: No Symptoms Respiratory: reports: No Symptoms Gastrointestinal: reports: No Symptoms Genitourinary: reports: No Symptoms Musculoskeletal: reports: No Symptoms Integumentary: reports: No Symptoms Neurological: reports: No Symptoms Endocrine: reports: No Symptoms Hematology/Lymphatic: reports: No Symptoms Psychiatric: reports: No Symptoms Physical Exam Vital Signs: Vital Signs Temperature 98.6 F 12/15/17 07:10 Pulse Rate 84 12/15/17 10:44 Respiratory Rate 18 12/15/17 10:44 Blood Pressure 129/52 12/15/17 10:44 O2 Sat by Pulse Oximetry (%) 98 12/15/17 10:44 Constitutional: Yes: Well Nourished, Calm, Moderate Distress Eyes: Yes: Conjunctiva Clear HENT: Yes: Other (rt submandibular swelling associated wiht tenderness and erythema) Neck: Yes: Supple, Trachea Midline Cardiovascular: Yes: Regular Rate and Rhythm Respiratory: Yes: Regular, CTA Bilaterally Gastrointestinal: Yes: Normal Bowel Sounds, Soft Musculoskeletal: Yes: WNL Extremities: Yes: WNL Neurological: Yes: Alert, Oriented Psychiatric: Yes: Alert, Oriented Labs: CBC, BMP 12/15/17 10:51 12/15/17 01:05 Imaging - Results Cat Scan: Report Reviewed, Image Reviewed Ultrasound: Report Reviewed, Image Reviewed Assessment/Plan Problem List - Problems (1) Sialadenitis. Code(s): K11.20 - SIALOADENITIS, UNSPECIFIED fever cause exactly not known patient has been started on unasyn plan continue unasyn will add clinda hydration ent to see the patient rest as per primary team
[2017-12-15 12:08] LABS: ALBUMIN 3.3 g/dl (3.4-5.0); ALK PHOS 80 U/L (45-117); ANION GAP 8 (8-16); BILIRUBIN,TOTAL 0.4 mg/dL (0.2-1.0); BLOOD UREA NITROGEN 25 mg/dL (7-18); CALCIUM 8.2 mg/dL (8.5-10.1); CHLORIDE 100 mmol/L (98-107); CO2 26 mmol/L (21-32); CREATININE 1.1 mg/dL (0.55-1.02); GLUCOSE,RANDOM 229 mg/dL (74-106); POTASSIUM 4.1 mmol/L (3.5-5.1); SGOT/AST 112 U/L (15-37); SGPT/ALT 98 U/L (12-78); SODIUM 134 mmol/L (136-145); TOT PROT 7.8 g/dl (6.4-8.2)
[2017-12-15] MEDS: CLINDAMYCIN 300 MG PREMIX IVPB 300 MG/50 ML BAG IVPB SCH ×2 (12:16→18:23)
[2017-12-15] MEDS ORDERED: ACETAMINOPHEN INJECTION 100 ML IVPB ONE (13:44)
[2017-12-15] MEDS ORDERED: ACETAMINOPHEN 160 MG/5 ML *Children Solution PO ONE (13:47)
--- NOTE | 2017-12-15 14:14 | PN ---
Progress Note (short form) - Note Progress Note: Chief Complaint: Events noted, notes reviewed, denies any further chest pain but reports persistent dyspnea, although severity of which has decreased, continues to report persistence of sub-mandibular salivary gland discomfort History of Present Illness: Seen and examined on telemetry. Full consult dictated Medications: Current Medications Acetaminophen (Tylenol *Children Solution* -) 650 mg PO ONCE ONE Stop: 12/15/17 13:48 Amlodipine Besylate (Norvasc -) 10 mg PO DAILY [facility] Last Admin: 12/15/17 10:49 Dose: Not Given Aspirin (Ecotrin -) 81 mg PO DAILY [facility] Atorvastatin Calcium (Lipitor -) 80 mg PO HS [facility] Clopidogrel Bisulfate (Plavix -) 75 mg PO DAILY [facility] Last Admin: 12/15/17 10:45 Dose: 75 mg Furosemide (Lasix Injection -) 40 mg IVPUSH DAILY [facility] Ampicillin Sodium/Sulbactam (Sodium 3 gm/ Sodium Chloride) 100 mls @ 200 mls/ hr IVPB Q8H-IV [facility] Last Admin: 12/15/17 10:49 Dose: 200 mls/hr Clindamycin Phosphate (Cleocin 300 Mg Premix Ivpb) 300 mg in 50 mls @ 100 mls/ hr IVPB Q8H-IV [facility] Last Admin: 12/15/17 12:16 Dose: 100 mls/hr Insulin Aspart (Novolog Vial Sliding Scale -) 1 vial SQ TIDAC [facility] PRN Reason: Protocol Last Admin: 12/15/17 11:30 Dose: 4 unit Insulin Detemir (Levemir Vial) 20 units SQ AM [facility] Insulin Detemir (Levemir Vial) 30 units SQ HS [facility] Lisinopril (Prinivil) 10 mg PO BID [facility] Last Admin: 12/15/17 10:49 Dose: Not Given Metoprolol Succinate (Toprol Xl -) 25 mg PO DAILY [facility] Last Admin: 12/15/17 10:49 Dose: 25 mg Review of Systems Cardiovascular: As noted above Respiratory: denies: denies: Cough or Sputum Production Gastrointestinal: denies: Nausea, vomiting, Diarrhea, Constipation and Abdominal Discomfort Musculoskeletal: No Symptoms Reported Endocrine: No Symptoms Reported Vital Signs: Last Vital Signs Temp Pulse Resp BP Pulse Ox 102.1 F H 86 20 133/60 100 12/15/17 12:28 12/15/17 11:59 12/15/17 11:59 12/15/17 11:59 12/15/17 11:59 Intake & Output 12/12/17 12/13/17 12/14/17 12/15/17 23:59 23:59 23:59 23:59 Intake Total 1500 Output Total 2400 Balance -900 Weight 198 lb 198 lb Constitutional: No Distress, Calm Neck: Supple Negative JVD Respiratory: Diminished Breath Sounds Bilaterally Cardiovascular: S1 S2 Regular Rate Rhythm Grade 1-2/6 ROSALIO Gastrointestinal: Soft Benign Normal Bowel Sounds Ext: Trace Edema 1-2+ Bilateral Distal Pulses Labs: CBC, BMP 12/15/17 10:51 12/15/17 11:37 Hepatic Panel Total Bilirubin 0.4 mg/dL (0.2-1.0) 12/15/17 11:37 AST 112 U/L (15-37) H D 12/15/17 11:37 ALT 98 U/L (12-78) H 12/15/17 11:37 Alkaline Phosphatase 80 U/L (45-117) D 12/15/17 11:37 Albumin 3.3 g/dl (3.4-5.0) L 12/15/17 11:37 Troponin, BNP 12/15/17 12/15/17 12/15/17 01:05 02:45 06:05 Troponin I 0.21 H 0.21 H B-Natriuretic Peptide 1576.27 H 12/15/17 11:37 Troponin I 0.23 H B-Natriuretic Peptide Assessment/Plan ASSESSMENT: 1. CAD post CO/PCI/Stent angina pectoris with evidence of demand ischemic injury in context of 2. Acute on chronic class II-III NYHA classification LV congestive heart failure , precipitated by volume overload (IV fluids, IV contrast) and ischemia post Epinephrine administration 3. Heart murmur related to aortic valve disease/sclerosis 4. HTN 5. DM 6. Hypercholesterolemia 7. 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 Sub-mandibular gland inflammation/infection 9. CKD 10. Abnormal liver function testing 11. Anemia PLAN: 1. Continue ASA +/- Plavix with caution but D/C Heparin 2. Continue Norvasc but decrease dosage 3. Continue Prinivil with caution and close monitoring of renal function 4. Continue Toprol XL 5. Continue Lipitor, if LFT's remain abnormal therapy may need to be withheld 6. Continue IV Lasix with caution and close monitoring of renal function 7. Echocardiography to evaluate LV size and function and the above noted valvular pathology Thank you for the consult Rishabh Wong M.D.
[2017-12-15] MEDS ORDERED: METOPROLOL SUCCINATE 50 MG TAB.SR.24H (FP) PO SCH (15:03)
[2017-12-15] MEDS ORDERED: amLODIPine BESYLATE 5 MG TABLET (FP) PO SCH (15:03)
[2017-12-15] MEDS ORDERED: ACETAMINOPHEN 650 MG/20.3 ML ORAL SOLUTION (CUPS) PO ONE (15:15)
--- NOTE | 2017-12-15 17:21 | CONS ---
DATE OF CONSULTATION: 12/15/2017 CONSULTATION REQUESTED BY: Hospitalist. CHIEF COMPLAINT: Chest discomfort, dyspnea, cardiovascular evaluation. A 62-year-old female of descent, with known history of coronary artery disease, status post myocardial infarction, status post percutaneous coronary intervention and stenting, angina pectoris, systolic/diastolic left ventricular dysfunction with chronic class 0 to 1 [place] [employer] classification left ventricular failure, hypertensive cardiovascular disease, diabetes mellitus, hypercholesterolemia, who presented to [facility] Emergency Room with fever, cough productive of white sputum, and in addition, submandibular swelling. Patient, during CT scan of the neck with contrast, had acute respiratory distress, dyspnea, and was thought to be an allergic reaction to contrast, at which point epinephrine was administered, subsequent to which patient reported chest discomfort and persistence of dyspnea and, in addition, she was noted to have elevated troponin I suggestive of acute coronary syndrome. Patient currently denies any chest discomfort but continues to report persistence of dyspnea, although severity of which has decreased. Patient continues to report persistence of submandibular swelling and difficulty swallowing. Patient denies any orthopnea or paroxysmal nocturnal dyspnea. Patient reports intermittent bilateral lower extremity edema that worsens in the latter part of the day. Patient denies any palpitation, dizziness, lightheadedness, or syncope. Patient reports fatigue and tiredness. Patient is followed by [facility]. Patient, in addition, has known history of peripheral vascular disease post peripheral intervention and post toe amputation. PAST MEDICAL HISTORY: Coronary artery disease, status post myocardial infarction, status post percutaneous coronary intervention and stenting, angina pectoris, systolic/diastolic left ventricular dysfunction with class 0 to 1 [place] [employer] classification left ventricular failure, hypertensive cardiovascular disease, diabetes mellitus, hypercholesterolemia, peripheral vascular disease, post peripheral percutaneous intervention, stenting, post toe amputation. SOCIAL HISTORY: Nonsmoker. FAMILY HISTORY: Positive coronary artery disease. ALLERGIES: None reported. Medical therapy at home included Norvasc 10 mg once a day, Ecotrin 81 mg once a day, Lipitor 80 mg once a day, Plavix 75 mg once a day, ferrous sulfate 325 mg once a day, glipizide 10 mg once a day, insulin as prescribed, lisinopril 10 mg twice a day, metformin 850 mg 3 times a day, Toprol XL 25 mg once a day, Onglyza 5 mg once a day, Januvia 100 mg once daily. REVIEW OF SYSTEMS: Head and Neck: Denies headache, photophobia, blurring of vision. Respiratory: Cough productive of clear sputum. Cardiovascular: As noted above. Gastrointestinal: Denies nausea, vomiting, diarrhea, but reported abdominal discomfort. Genitourinary: No symptoms reported. Musculoskeletal: No symptoms reported. PHYSICAL EXAMINATION: Vital Signs: Blood pressure is 133/60 mmHg. Pulse rate is 86 beats per minute. Temperature 102.1 Fahrenheit. Head and Neck: Pupils equal, react to light and accommodation. Extraocular muscles intact. Anicteric sclerae. Negative JVD. Bilateral soft carotid bruit. Submandibular swelling and redness was noted. Chest: Diminished breath sounds at the bases bilaterally. Cardiovascular: S1, S2 regular. Grade 1 to 2/6 systolic ejection murmur. Abdomen: Soft, benign. Normoactive bowel sound. Extremities: Trace edema, 1 to 2+ bilateral distal pulses. EKG revealed sinus rhythm with anteroseptal wall myocardial infarction and ST-segment abnormality suggestive of ischemia. Chest x-ray was noted. CBC revealed a white cell count 7.1, hemoglobin 9.5, platelets 170. Basic metabolic profile revealed a sodium 134, potassium 4.1, BUN 25, creatinine 1.1, glucose 229, AST 112, ALT 98. Troponin 0.12, most recent one is 0.23. B-type natriuretic peptide was 1576. ASSESSMENT: 1. Coronary artery disease post myocardial infarction, post percutaneous coronary intervention and stenting, angina pectoris with evidence of demand ischemic injury in context of number 2. 2. Acute on chronic class 2 to 3 [place] [employer] classification left ventricular failure precipitated by volume overload, IV fluids and IV contrast, and probable ischemia induced by epinephrine administration. 3. Heart murmur, most likely related to aortic valve disease, aortic valve sclerosis. 4. Hypertensive cardiovascular disease. 5. Diabetes mellitus. 6. Hypercholesterolemia. 7. Peripheral vascular disease post toe amputation post percutaneous intervention, stenting. 8. Submandibular gland inflammation/infection. 9. Chronic kidney disease. 10. Abnormal liver function testing. 11. Anemia. RECOMMENDATION: 1. Continuation of aspirin plus/minus Plavix with caution but heparin intravenous drip was discontinued, initiated in the emergency room. 2. Continuation of Norvasc but decreasing dosage. 3. Continuation of Prinivil with caution and close monitoring of renal function. 4. Continuation of Toprol XL therapy. 5. Continuation of Lipitor therapy with caution, considering the above- noted abnormal liver function testing. 6. Continue IV Lasix with caution and close monitoring of renal function. 7. Echocardiography for evaluation of left ventricular systolic function and valvular pathology. Thank you for the kind referral. DENISE ADAMES M.D. [id number]
[2017-12-15] MEDS ORDERED: diphenhydrAMINE HCL 25 MG CAPSULE (FP) PO ONE ×2 (21:40→21:43)
[2017-12-15] MEDS ORDERED: ATORVASTATIN CA 80 MG TABLET (FP) ONE (21:43)
[2017-12-15] MEDS ORDERED: ATORVASTATIN CA 80 MG TABLET (FP) PO SCH (22:00)
[2017-12-15] MEDS ORDERED: INSULIN DETEMIR 100 UNITS/ML MDV SQ SCH (22:00)
[2017-12-16] MEDS: CLINDAMYCIN 300 MG PREMIX IVPB 300 MG/50 ML BAG IVPB SCH ×3 (02:30→18:17)
[2017-12-16] MEDS: AMPICILLIN NA/SULBACTAM NA 3 GM in SODIUM CHLORIDE 100 ML IVPB SCH ×3 (02:30→18:17)
[2017-12-16] MEDS ORDERED: INSULIN DETEMIR 100 UNITS/ML MDV SQ SCH ×2 (07:00→22:00)
[2017-12-16] MEDS: INSULIN SLIDING SCALE (NOVOLOG) 1 VIAL SQ SCH ×3 (07:56→16:18)
[2017-12-16] MEDS ORDERED: INSULIN DETEMIR 100 UNITS/ML MDV SQ ONE (07:57)
[2017-12-16] MEDS ORDERED: INSULIN (NOVOLOG) ASPART 100 UNITS/ML 10ML VIAL ONE ×2 (07:58→12:00)
[2017-12-16 08:12] LABS: BASO % 0.5 % (0-2.0); EOS % 3.9 % (0-4.5); HEMATOCRIT 27.4 % (32.4-45.2); LYMPH % 23.3 % (8-40); MCH 27.8 pg (25.7-33.7); MCHC 32.7 g/dl (32.0-36.0); MEAN PLT VOLUME 9.8 fl (7.5-11.1); MONO % 13.9 % (3.8-10.2); NEUT % 58.4 % (42.8-82.8); PLATELET COUNT 153 K/MM3 (134-434); RBC 3.23 M/mm3 (3.60-5.2); RDW 14.9 % (11.6-15.6); WHITE BLOOD COUNT 4.5 K/mm3 (4.0-10.0)
[2017-12-16 08:31] LABS: ALBUMIN 2.9 g/dl (3.4-5.0); ANION GAP 10 (8-16); BLOOD UREA NITROGEN 26 mg/dL (7-18); CALCIUM 7.9 mg/dL (8.5-10.1); CHLORIDE 102 mmol/L (98-107); CO2 26 mmol/L (21-32); GLUCOSE,RANDOM 196 mg/dL (74-106); POTASSIUM 3.9 mmol/L (3.5-5.1); SODIUM 138 mmol/L (136-145)
[2017-12-16 08:35] LABS: ALK PHOS 74 U/L (45-117); BILIRUBIN,TOTAL 0.3 mg/dL (0.2-1.0); CREATININE 0.9 mg/dL (0.55-1.02); PHOSPHOROUS 4.1 mg/dL (2.5-4.9); SGOT/AST 84 U/L (15-37); SGPT/ALT 80 U/L (12-78); TOT PROT 6.5 g/dl (6.4-8.2)
--- NOTE | 2017-12-16 09:09 | PN ---
Progress Note, Physician History of Present Illness: Dyspnea, LE edema, chest tightness and right submandibular swelling/tenderness improving, defervesced. - Current Medication List Current Medications: Active Medications Amlodipine Besylate (Norvasc -) 5 mg PO DAILY [facility] Aspirin (Ecotrin -) 81 mg PO DAILY [facility] Atorvastatin Calcium (Lipitor -) 80 mg PO HS [facility] Last Admin: 12/15/17 21:55 Dose: 80 mg Clopidogrel Bisulfate (Plavix -) 75 mg PO DAILY [facility] Last Admin: 12/15/17 10:45 Dose: 75 mg Furosemide (Lasix Injection -) 40 mg IVPUSH DAILY [facility] Ampicillin Sodium/Sulbactam (Sodium 3 gm/ Sodium Chloride) 100 mls @ 200 mls/ hr IVPB Q8H-IV [facility] Last Admin: 12/16/17 02:30 Dose: 200 mls/hr Clindamycin Phosphate (Cleocin 300 Mg Premix Ivpb) 300 mg in 50 mls @ 100 mls/ hr IVPB Q8H-IV [facility] Last Admin: 12/16/17 02:30 Dose: 100 mls/hr Insulin Aspart (Novolog Vial Sliding Scale -) 1 vial SQ TIDAC [facility] PRN Reason: Protocol Last Admin: 12/16/17 07:56 Dose: 4 unit Insulin Detemir (Levemir Vial) 20 units SQ AM [facility] Last Admin: 12/16/17 07:56 Dose: 20 unit Insulin Detemir (Levemir Vial) 30 units SQ HS [facility] Last Admin: 12/15/17 22:00 Dose: 30 units Lisinopril (Prinivil) 20 mg PO DAILY [facility] Metoprolol Succinate (Toprol Xl -) 50 mg PO DAILY [facility] - Objective Vital Signs: Vital Signs Temperature 98.2 F 12/16/17 03:05 Pulse Rate 85 12/16/17 07:02 Respiratory Rate 18 12/16/17 07:02 Blood Pressure 132/57 12/16/17 07:02 O2 Sat by Pulse Oximetry (%) 93 L 12/16/17 07:02 Constitutional: Yes: No Distress, Calm Neck: Yes: Supple, Other (Right submandibular and parotid swelling and tendernss ) Cardiovascular: Yes: Regular Rate and Rhythm Respiratory: Yes: Regular, Diminished Gastrointestinal: Yes: Normal Bowel Sounds, Soft Edema: No Labs: CBC, BMP 12/16/17 07:30 12/16/17 07:30 INR, PTT INR 1.09 (0.82-1.09) 12/15/17 08:50 Problem List - Problems (1) Abnormal LFTs Code(s): R94.5 - ABNORMAL RESULTS OF LIVER FUNCTION STUDIES (2) Allergic reaction to contrast dye Code(s): T50.8X5A - ADVERSE EFFECT OF DIAGNOSTIC AGENTS, INITIAL ENCOUNTER Qualifiers: Encounter type: initial encounter Qualified Code(s): T50.8X5A - Adverse effect of diagnostic agents, initial encounter (3) Pulmonary edema Code(s): J81.1 - CHRONIC PULMONARY EDEMA Qualifiers: Chronicity: acute Qualified Code(s): J81.0 - Acute pulmonary edema (4) Sialadenitis Code(s): K11.20 - SIALOADENITIS, UNSPECIFIED (5) Demand ischemia Code(s): I24.8 - OTHER FORMS OF ACUTE ISCHEMIC HEART DISEASE (6) Hypertensive cardiomyopathy Code(s): I11.9 - HYPERTENSIVE HEART DISEASE WITHOUT HEART FAILURE; I43 - CARDIOMYOPATHY IN DISEASES CLASSIFIED ELSEWHERE Qualifiers: Heart failure presence: with heart failure Qualified Code(s): I11.0 - Hypertensive heart disease with heart failure; I43 - Cardiomyopathy in diseases classified elsewhere; I43 - Cardiomyopathy in diseases classified elsewhere; I43 - Cardiomyopathy in diseases classified elsewhere; I43 - Cardiomyopathy in diseases classified elsewhere (7) Hyperlipidemia associated with type 2 diabetes mellitus Code(s): E11.69 - TYPE 2 DIABETES MELLITUS WITH OTHER SPECIFIED COMPLICATION; E78.5 - HYPERLIPIDEMIA, UNSPECIFIED Assessment/Plan 1. CAD post DC/PCI/Stent angina pectoris with evidence of demand ischemic injury in context of 2. Acute on chronic LV diastolic heart failure, precipitated by volume overload (IV fluids, IV contrast) and ischemia post Epinephrine administration imrpoving 3. Heart murmur related to aortic valve disease/sclerosis 4. HTN 5. DM 6. 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 Sialadenitis 9. Abnormal liver function testing 10. Anemia PLAN: 1. Continue ASA 81 qd and Plavix 75 qd 2. Continue Norvasc 5 qd 3. Continue Prinivil 20 qd with caution and close monitoring of renal function 4. Continue Toprol XL 50 qd 5. Continue Lipitor 80 qhs, if LFT's remain abnormal therapy may need to be withheld 6. Continue Lasix 40 IV qd with caution and close monitoring of renal function 7. Echocardiography to evaluate LV size and function and the above noted valvular pathology 8. On empiric abx for sialadenitis 9. Transfer to medicine
[2017-12-16] MEDS ORDERED: FUROSEMIDE 40 MG/4 ML INJECTABLE VIAL IVPUSH SCH (10:00)
[2017-12-16] MEDS ORDERED: ASPIRIN COATED 81 MG TABLET.EC PO SCH (10:00)
[2017-12-16] MEDS ORDERED: LISINOPRIL 20 MG TABLET (FP) PO SCH (10:00)
[2017-12-16] MEDS: CLOPIDOGREL BISULFATE 75 MG TABLET (FP) PO SCH (10:38)
--- NOTE | 2017-12-16 11:32 | EKG ---
Test Reason : Blood Pressure : / mmHG Vent. Rate : 089 BPM Atrial Rate : 089 BPM P-R Int : 154 ms QRS Dur : 100 ms QT Int : 386 ms P-R-T Axes : 063 054 044 degrees QTc Int : 469 ms NORMAL SINUS RHYTHM SEPTAL INFARCT (CITED ON OR BEFORE 09-JAN-2012) ST- T WAVE ABNORMALITY, CONSIDER LATERAL ISCHEMIA ABNORMAL ECG WHEN COMPARED WITH ECG OF 15-DEC-2017 01:58, ST-T ABNORMALITIES MORE PRONOUNCED Confirmed by GAGANDEEP LIMON MD ([id number]) on 12/16/2017 11:31:43 AM Referred By: Confirmed By:GAGANDEEP LIMON MD
--- NOTE | 2017-12-16 11:37 | EKG ---
Test Reason : Blood Pressure : / mmHG Vent. Rate : 109 BPM Atrial Rate : 109 BPM P-R Int : 140 ms QRS Dur : 100 ms QT Int : 366 ms P-R-T Axes : 063 036 094 degrees QTc Int : 492 ms SINUS TACHYCARDIA POSSIBLE LEFT ATRIAL ENLARGEMENT CANNOT RULE OUT ANTERIOR INFARCT (CITED ON OR BEFORE 09-JAN-2012) ST-T ABNORMALITY CONSIDER ISCHEMIA ABNORMAL ECG WHEN COMPARED WITH ECG OF 09-JAN-2012 11:09, ST-T ABNORMALITIES ARE NEW Confirmed by GAGANDEEP LIMON MD ([id number]) on 12/16/2017 11:37:42 AM Referred By: Confirmed By:GAGANDEEP LIMON MD
--- NOTE | 2017-12-16 12:43 | CON.ENT ---
Consult Consult Specialty:: ENT Reason for Consultation:: right neck swollen - History of Present Illness Chief Complaint: neck swollen History of Present Illness: 62F with PMHx including CAD, DM2 presented to ER with right neck swelling. After CT Neck with contrast done days ago there was suspicion for contrast reaction but it was more likely pulmonary edema from IV fluids. She has been in the ER for a couple of days now with IV antibiotics and is feeling much better. This has never happened before. There was an antecedent URI which she believes she caught from her . - History Source History Provided By: Patient Limitations to Obtaining History: No Limitations - Past Medical History Cardio/Vascular: Yes: HTN Endocrine: Yes: Diabetes Mellitus Dermatology: Yes: Other (Ulcer left foot) - Past Surgical History Past Surgical History: Yes: Amputation (2nd toes DIP joint B/L) - Alcohol/Substance Use Hx Alcohol Use: No - Smoking History Smoking history: Never smoked Have you smoked in the past 12 months: No Aproximately how many cigarettes per day: 0 Home Medications - Allergies Allergies/Adverse Reactions: Allergies Allergy/AdvReac Type Severity Reaction Status Date / Time No Known Drug Allergies Allergy Verified 12/14/17 17:04 - Home Medications Home Medications: Ambulatory Orders Glipizide 10 mg PO DAILY 01/02/12 Saxagliptin HCl [Onglyza] 5 mg PO HS 01/02/12 Aspirin [ASA -] 81 mg PO DAILY 08/19/12 Insulin Glargine,Hum.rec.anlog [Lantus] 60 unit SCJ HS 08/19/12 Lisinopril [Prinivil] 10 mg PO BID 08/19/12 Metformin HCl [Glucophage] 850 mg PO TID 08/19/12 Amlodipine Besylate 10 mg PO DAILY 12/14/17 Atorvastatin Ca [Lipitor] 80 mg PO HS 12/14/17 Clopidogrel Bisulfate [Plavix -] 75 mg PO DAILY 12/14/17 Ferrous Sulfate 325 mg PO DAILY 12/14/17 Insulin NPH Hum/Reg Insulin Hm [Novolin 70-30 100 Unit/ml Vial] 30 unit SQ DAILY 12/14/17 Metoprolol Succinate [Toprol Xl -] 25 mg PO DAILY 12/14/17 Sitagliptin Phosphate [Januvia -] 100 mg PO DAILY 12/14/17 Physical Exam-ENT Vital Signs: Vital Signs Temperature 98.2 F 12/16/17 10:38 Pulse Rate 77 12/16/17 10:38 Respiratory Rate 18 12/16/17 10:38 Blood Pressure 138/61 12/16/17 10:38 O2 Sat by Pulse Oximetry (%) 100 12/16/17 10:38 Constitutional: Yes: Well Nourished, No Distress, Calm, Other (sitting up in bed , getting ready to eat breakfast. pleasant. nml voice. no stridor/stertor.) Head: Yes: WNL Face: Yes: WNL Eyes: Yes: WNL Nose: Yes: WNL Nasal Passage: Yes: WNL Oral/Pharynx: Yes: Other (no overt dental pathology. FOM soft, flat. +clear mucous milking ike's and warton's ducts. No stones appreciated. Post o/p clear. no masses/lesions. no tonsil masses or asymmetry. TF/BOT soft.) Outer Ear: Yes: WNL Ear Canal: Yes: WNL Tympanic Membrane: Yes: WNL Neck: Yes: Other (Right SMG mildly indurated and mild-mod TTP. There is no erythema, crepitance, or fluctuance. Observation alone shows slight enlargement of R SMG. No parotid TTP.) Neurological: Yes: Other (CN3-7,11,12 intact, symmetrical) Imaging - Results Cat Scan: Report Reviewed, Image Reviewed (Agree R SMG and slightly also parotid enlargement. no stones seen. no rim enhancing collections. fat stranding on right neck overlying. small LAD right neck.) Problem List - Problems (1) Sialadenitis Assessment/Plan: Right submandibular gland sialadenitis, likely postviral. Greatly improved on fluids, abx. - No purulence to cx. No stone. - No prior history - Supportive measures advised -- hydration (as able given her recent overload), warm compresses, massage anterograde, lemon drops. - Enlarged nodes in neck - likely reactive. Should f/u me or PMD in 1 month to ensure improvement. Mediastinal nodes of unclear significant - defer to primary team. Tonsilar enhancement likely part of same infectious process in her neck and there is no e/o mass. - No WBC elevation. Fevers resolved. - Tight DM2 control important. - ID consulting, note pending. On Unasyn, clindamycin. - Primary medical team management for medical, cardiac issues Please have the patient see me in one month to re-evaluate in my [place] office. Thank you for this consultation, please call with further questions. Code(s): K11.20 - SIALOADENITIS, UNSPECIFIED
[2017-12-16 14:21] LABS: HEPATITIS B CORE ANTIBODY,IGM Negative (Negative)
--- NOTE | 2017-12-16 14:21 | PN ---
Progress Note, Physician History of Present Illness: patient stable doing well still with tenderness and erythema but improving no complaints - Current Medication List Current Medications: Active Medications Amlodipine Besylate (Norvasc -) 5 mg PO DAILY [facility] Last Admin: 12/16/17 10:39 Dose: 5 mg Aspirin (Ecotrin -) 81 mg PO DAILY [facility] Last Admin: 12/16/17 10:39 Dose: 81 mg Atorvastatin Calcium (Lipitor -) 80 mg PO HS [facility] Last Admin: 12/15/17 21:55 Dose: 80 mg Clopidogrel Bisulfate (Plavix -) 75 mg PO DAILY [facility] Last Admin: 12/16/17 10:38 Dose: 75 mg Furosemide (Lasix -) 40 mg PO DAILY [facility] Ampicillin Sodium/Sulbactam (Sodium 3 gm/ Sodium Chloride) 100 mls @ 200 mls/ hr IVPB Q8H-IV [facility] Last Admin: 12/16/17 10:47 Dose: 200 mls/hr Clindamycin Phosphate (Cleocin 300 Mg Premix Ivpb) 300 mg in 50 mls @ 100 mls/ hr IVPB Q8H-IV [facility] Last Admin: 12/16/17 11:33 Dose: 100 mls/hr Insulin Aspart (Novolog Vial Sliding Scale -) 1 vial SQ TIDAC [facility] PRN Reason: Protocol Last Admin: 12/16/17 11:58 Dose: 4 unit Insulin Detemir (Levemir Vial) 20 units SQ AM [facility] Last Admin: 12/16/17 07:56 Dose: 20 unit Insulin Detemir (Levemir Vial) 30 units SQ HS [facility] Last Admin: 12/15/17 22:00 Dose: 30 units Lisinopril (Prinivil) 20 mg PO DAILY [facility] Last Admin: 12/16/17 10:39 Dose: 20 mg Metoprolol Succinate (Toprol Xl -) 50 mg PO DAILY [facility] Last Admin: 12/16/17 10:39 Dose: 50 mg - Objective Vital Signs: Vital Signs Temperature 98.0 F 12/16/17 13:58 Pulse Rate 70 12/16/17 13:58 Respiratory Rate 18 12/16/17 13:58 Blood Pressure 110/50 12/16/17 13:58 O2 Sat by Pulse Oximetry (%) 100 12/16/17 13:58 Constitutional: Yes: No Distress, Calm HENT: Yes: Other (rt submandibular swelling and erythema) Cardiovascular: Yes: Regular Rate and Rhythm Respiratory: Yes: Regular, CTA Bilaterally Gastrointestinal: Yes: Normal Bowel Sounds, Soft Musculoskeletal: Yes: WNL Extremities: Yes: WNL Neurological: Yes: Alert, Oriented Psychiatric: Yes: Alert, Oriented Labs: CBC, BMP 12/16/17 07:30 12/16/17 07:30 INR, PTT INR 1.09 (0.82-1.09) 12/15/17 08:50 Assessment/Plan Problem List - Problems (1) Sialadenitis. Code(s): K11.20 - SIALOADENITIS, UNSPECIFIED fever cause exactly not known patient has been started on unasyn plan continue abx doing well will switch to oral clinda tomorrow if patient doing well rest as per primary team
--- NOTE | 2017-12-16 14:48 | PN ---
Teaching Attending Note Name of Resident: Raghav Al ATTENDING PHYSICIAN STATEMENT I saw and evaluated the patient. I reviewed the resident's note and discussed the case with the resident. I agree with the resident's findings and plan as documented. SUBJECTIVE: No fever or chills . feels better , chest pressure improved . SOB improved OBJECTIVE: NAD HEENT: R submandibular erythema resolved . tenderness and mass like bulge in R submandibular area improved . No LAP in L . parotids are nl. MMM, no JVD. Cv : RRR, 2/6 Sm at USB, NO JVD Lungs : CTAB Ext : 1+ pitting edema . amputation of 1st 4 toes on L Abd:soft, Nt, ND , NL BS Assessment/Plan: 62 y/o lady with HTN, IDDM , CAD , s/p NC, and stents, and other medical problems who presented with fever , and R submandibular swelling . She was found to have saialdenitis . Also developed pulm edema in Er after IVF , and trop elevation after sq Epi 1- Sialadenitis : could be bacterial or viral . no stones were seen - cont unasyn and clinda - follow blood cx - appreciate ID and ENT help 2- Acute diastolic CHF exacerbation . Improved - echo with nl EF , with mild MR and TR - po lasix - cont to monitor I&O - cont BB and ACEI ( dosage change noted ) 3- NSTEMI: trop trended down - dc tele - cont ASA and plavix at home dose - cont BB and ACEI 4- NAEL : resolved 5- Transaminitis : likely due to hepatic congestion . improved , monitor on HD 6- IDDM: - cont current regimen in house - SSI 7- HTN: cont lisinopril and toprol HLOC
--- NOTE | 2017-12-16 15:43 | PN ---
Physical Exam: SUBJECTIVE: Patient seen and examined at bedside. Patient states that her swelling has improved but she still has pain in the R submandibular region. She states that she feels feverish. Denies chest pain or shortness of breath. OBJECTIVE: Vital Signs Period Temp Pulse Resp BP Sys/Wilson Pulse Ox Last 24 Hr 98.0 F-100.0 F 69-85 18-20 110-138/50-76 90-100 GENERAL: The patient is awake, alert, and fully oriented, in no acute distress. HEAD: Normal with no signs of trauma. ENT: Ears normal, nares patent, oropharynx clear without exudates, moist mucous membranes. Dentures in place. NECK: Trachea midline, full range of motion, supple. No erythema in the submandibular region. LUNGS: Breath sounds equal, clear to auscultation bilaterally, no wheezes, no crackles, no accessory muscle use. HEART: Regular rate and rhythm, S1, S2 without murmur, rub or gallop. ABDOMEN: Soft, nontender, nondistended, normoactive bowel sounds, no guarding, no rebound, no hepatosplenomegaly, no masses. Laboratory Results - last 24 hr 12/15/17 12/15/17 12/15/17 06:05 15:40 17:34 WBC RBC Hgb Hct MCV MCH MCHC RDW Plt Count MPV Neutrophils % Lymphocytes % Monocytes % Eosinophils % Basophils % Sodium Potassium Chloride Carbon Dioxide Anion Gap BUN Creatinine Creat Clearance w eGFR POC Glucometer [phone] Random Glucose Calcium Phosphorus Magnesium Total Bilirubin AST ALT Alkaline Phosphatase Troponin I 0.23 H Total Protein Albumin Hep B Core IgM Ab Negative Hepatitis C Antibody 0.3 12/15/17 12/16/17 12/16/17 21:52 07:30 07:30 WBC 4.5 D RBC 3.23 L Hgb 9.0 L Hct 27.4 L MCV 85.0 MCH 27.8 MCHC 32.7 RDW 14.9 Plt Count 153 MPV 9.8 Neutrophils % 58.4 D Lymphocytes % 23.3 D Monocytes % 13.9 H D Eosinophils % 3.9 D Basophils % 0.5 Sodium 138 Potassium 3.9 Chloride 102 Carbon Dioxide 26 Anion Gap 10 BUN 26 H Creatinine 0.9 Creat Clearance w eGFR > 60 POC Glucometer [phone] Random Glucose 196 H Calcium 7.9 L Phosphorus 4.1 Magnesium 2.0 Total Bilirubin 0.3 D AST 84 H D ALT 80 H Alkaline Phosphatase 74 Troponin I Total Protein 6.5 Albumin 2.9 L Hep B Core IgM Ab Hepatitis C Antibody 12/16/17 12/16/17 12/16/17 07:30 07:51 11:52 WBC RBC Hgb Hct MCV MCH MCHC RDW Plt Count MPV Neutrophils % Lymphocytes % Monocytes % Eosinophils % Basophils % Sodium Potassium Chloride Carbon Dioxide Anion Gap BUN Creatinine Creat Clearance w eGFR POC Glucometer [phone] Random Glucose Calcium Phosphorus Magnesium Total Bilirubin AST ALT Alkaline Phosphatase Troponin I 0.21 H Total Protein Albumin Hep B Core IgM Ab Hepatitis C Antibody Active Medications Generic Name Dose Route Start Last Admin Trade Name Freq PRN Reason Stop Dose Admin Amlodipine Besylate 5 mg 12/15/17 15:03 12/16/17 10:39 Norvasc - PO 5 mg DAILY [facility] Administration Aspirin 81 mg 12/16/17 10:00 12/16/17 10:39 Ecotrin - PO 81 mg DAILY [facility] Administration Atorvastatin Calcium 80 mg 12/15/17 22:00 12/15/17 21:55 Lipitor - PO 80 mg HS [facility] Administration Clopidogrel Bisulfate 75 mg 12/15/17 10:00 12/16/17 10:38 Plavix - PO 75 mg DAILY [facility] Administration Furosemide 40 mg 12/17/17 10:00 Lasix - PO DAILY [facility] Ampicillin Sodium/Sulbactam 100 mls @ 200 mls/hr 12/15/17 10:00 12/16/17 10: 47 Sodium 3 gm/ Sodium Chloride IVPB 200 mls/hr Q8H-IV [facility] Administration Clindamycin Phosphate 300 mg in 50 mls @ 100 mls/hr 12/15/17 11:30 12/16/17 11:33 Cleocin 300 Mg Premix Ivpb IVPB 100 mls/hr Q8H-IV [facility] Administration Insulin Aspart 1 vial 12/15/17 07:00 12/16/17 11:58 Novolog Vial Sliding Scale - SQ 4 unit TIDAC [facility] Administration Protocol Insulin Detemir 20 units 12/16/17 07:00 12/16/17 07:56 Levemir Vial SQ 20 unit AM [facility] Administration Insulin Detemir 30 units 12/15/17 22:00 12/15/17 22:00 Levemir Vial SQ 30 units HS [facility] Administration Lisinopril 20 mg 12/16/17 10:00 12/16/17 10:39 Prinivil PO 20 mg DAILY [facility] Administration Metoprolol Succinate 50 mg 12/15/17 15:03 12/16/17 10:39 Toprol Xl - PO 50 mg DAILY [facility] Administration ASSESSMENT/PLAN: 62 year old woman with PMH of IDDM, HTN, CAD s/p OH/stents, suspected CHF, and PVD admitted for treatment of sialadenitis #Sialadenitis: improving, no longer erythematous, but rotary furnace tender to palpation -patient now afebrile -white count normalized -continue Unasyn IV Q8h day 2 of abx -continue Clindamycin 300 Q8h day 2 of abx -ID on board -ENT on board, appreciate recommendations #CHF exacerbation: likely 2/2 fluid administration -ECHO - normal -Kendrick, strict I&Os, daily weights -switch lasix to 40mg PO QD -continue metoprolol -continue lisinopril -continue norvasc #Troponinemia: resolved. likely 2/2 epi administration in ED after episode of SOB -troponins peaked at 0.23 --> 0.21 -Cardiology consulted, unlikely NSTEMI -d/c heparin per cardiology #Transaminitis - improving, likely 2/2 congestion from fluid overload -Abdominal U/S - hepatic steatosis #CAD s/p stents -cont ASA, Plavix, Lipitor #IDDM -Levemir 20mg in AM -Levemir 30mg at night -ISS/BGM TIDAC #FEN: No standing fluids Replete lytes as necessary in AM Diabetic/sodium diet #Prophylaxis: -SCDs #Disposition: Continue to monitor on med-surg Visit type - Emergency Visit Emergency Visit: No - New Patient This patient is new to me today: Yes Date on this admission: 12/16/17 - Critical Care Critical Care patient: No
[2017-12-16] MEDS ORDERED: ARTIFICIAL TEARS (POLYVINYL ALCOHOL 1.4%) OPTH DROPS OU ONE (19:20)
[2017-12-16] MEDS ORDERED: ARTIFICIAL TEARS (POLYVINYL ALCOHOL 1.4%) OPTH DROPS OU PRN (19:36)
[2017-12-16] MEDS ORDERED: ATORVASTATIN CA 80 MG TABLET (FP) PO SCH (22:00)
[2017-12-17 00:09] LABS: HBSAG SCREEN Negative (Negative); HEP A AB, IGM Negative (Negative); HEP B CORE AB, TOT Negative (Negative)
[2017-12-17] MEDS: AMPICILLIN NA/SULBACTAM NA 3 GM in SODIUM CHLORIDE 100 ML IVPB SCH ×2 (01:10→09:49)
[2017-12-17] MEDS: CLINDAMYCIN 300 MG PREMIX IVPB 300 MG/50 ML BAG IVPB SCH ×2 (01:46→11:05)
[2017-12-17] MEDS ORDERED: INSULIN (NOVOLOG) ASPART 100 UNITS/ML 10ML VIAL ONE ×2 (06:19→16:24)
[2017-12-17] MEDS: INSULIN SLIDING SCALE (NOVOLOG) 1 VIAL SQ SCH ×3 (06:22→16:36)
[2017-12-17] MEDS ORDERED: INSULIN DETEMIR 100 UNITS/ML MDV SQ SCH (07:00)
[2017-12-17 08:43] LABS: HEMATOCRIT 26.8 % (32.4-45.2); HEMOGLOBIN 8.8 GM/dL (10.7-15.3); MCH 27.9 pg (25.7-33.7); MCHC 32.8 g/dl (32.0-36.0); MEAN CELL VOLUME 85.1 fl (80-96); MEAN PLT VOLUME 9.7 fl (7.5-11.1); PLATELET COUNT 162 K/MM3 (134-434); RBC 3.15 M/mm3 (3.60-5.2); RDW 15.1 % (11.6-15.6); WHITE BLOOD COUNT 4.9 K/mm3 (4.0-10.0)
[2017-12-17 09:00] LABS: CHLORIDE 106 mmol/L (98-107); POTASSIUM 3.9 mmol/L (3.5-5.1); SODIUM 140 mmol/L (136-145)
[2017-12-17 09:09] LABS: ANION GAP 8 (8-16); BLOOD UREA NITROGEN 25 mg/dL (7-18); CALCIUM 8.1 mg/dL (8.5-10.1); CO2 26 mmol/L (21-32); CREATININE 0.8 mg/dL (0.55-1.02); GLUCOSE,RANDOM 137 mg/dL (74-106); MAGNESIUM 2.2 mg/dL (1.8-2.4); PHOSPHOROUS 4.8 mg/dL (2.5-4.9)
--- NOTE | 2017-12-17 09:42 | PN ---
Progress Note (short form) - Note Progress Note: Chief Complaint: Events noted, notes reviewed, denies any chest pain or dyspnea , reports peripheral edema, continues to report persistence of sub-mandibular salivary gland discomfort although severity has decreased History of Present Illness: Seen and examined on telemetry. Events noted, notes reviewed, denies any chest pain or dyspnea, reports peripheral edema, continues to report persistence of sub-mandibular salivary gland discomfort although severity has decreased Echocardiography revealed normal LV and RV size and function, mild to moderate MR Medications: Current Medications Amlodipine Besylate (Norvasc -) 5 mg PO DAILY [facility] Artificial Tears (Artificial Tears) 1 drop OU Q6H PRN PRN Reason: FOR ITCHING Aspirin (Ecotrin -) 81 mg PO DAILY [facility] Atorvastatin Calcium (Lipitor -) 80 mg PO HS [facility] Last Admin: 12/16/17 21:11 Dose: 80 mg Clopidogrel Bisulfate (Plavix -) 75 mg PO DAILY [facility] Furosemide (Lasix -) 40 mg PO DAILY [facility] Ampicillin Sodium/Sulbactam (Sodium 3 gm/ Sodium Chloride) 100 mls @ 200 mls/ hr IVPB Q8H-IV [facility] Last Admin: 12/17/17 01:10 Dose: 200 mls/hr Clindamycin Phosphate (Cleocin 300 Mg Premix Ivpb) 300 mg in 50 mls @ 100 mls/ hr IVPB Q8H-IV [facility] Last Admin: 12/17/17 01:46 Dose: 100 mls/hr Insulin Aspart (Novolog Vial Sliding Scale -) 1 vial SQ TIDAC [facility] PRN Reason: Protocol Last Admin: 12/17/17 06:22 Dose: 2 units Insulin Detemir (Levemir Vial) 20 units SQ AM [facility] Last Admin: 12/17/17 06:23 Dose: 20 units Insulin Detemir (Levemir Vial) 30 units SQ HS [facility] Last Admin: 12/16/17 21:09 Dose: 30 units Lisinopril (Prinivil) 20 mg PO DAILY [facility] Metoprolol Succinate (Toprol Xl -) 50 mg PO DAILY [facility] Review of Systems Cardiovascular: As noted above Respiratory: denies: denies: Cough or Sputum Production Gastrointestinal: denies: Nausea, vomiting, Diarrhea, Constipation and Abdominal Discomfort Musculoskeletal: No Symptoms Reported Endocrine: No Symptoms Reported Vital Signs: Last Vital Signs Temp Pulse Resp BP Pulse Ox 97.9 F 67 18 116/52 100 12/17/17 06:00 12/17/17 06:00 12/17/17 06:00 12/17/17 06:00 12/16/17 20:10 Intake & Output 12/14/17 12/15/17 12/16/17 12/17/17 23:59 23:59 23:59 23:59 Intake Total 1500 150 150 Output Total 2400 1000 Balance -900 -850 150 Weight 198 lb 198 lb 196 lb 11.2 oz 193 lb 9 oz Constitutional: No Distress, Calm Neck: Supple Negative JVD Respiratory: Clear to A&P Cardiovascular: S1 S2 Regular Rate Rhythm Grade 1-2/6 ROSALIO Gastrointestinal: Soft Benign Normal Bowel Sounds Ext: Trace Edema 1-2+ Bilateral Distal Pulses Labs: CBC, BMP 12/17/17 06:00 12/17/17 06:00 Hepatic Panel Total Bilirubin 0.3 mg/dL (0.2-1.0) D 12/16/17 07:30 AST 84 U/L (15-37) H D 12/16/17 07:30 ALT 80 U/L (12-78) H 12/16/17 07:30 Alkaline Phosphatase 74 U/L (45-117) 12/16/17 07:30 Albumin 2.9 g/dl (3.4-5.0) L 12/16/17 07:30 Assessment/Plan ASSESSMENT: 1. CAD post SD/PCI/Stent angina pectoris with evidence of demand ischemic injury in context of 2. Acute on chronic class II-III NYHA classification LV congestive heart failure , precipitated by volume overload (IV fluids, IV contrast) and ischemia post Epinephrine administration, resolved 3. Heart murmur related to aortic valve disease/sclerosis 4. HTN 5. DM 6. Hypercholesterolemia 7. PAD post toe amputation and [employer] 8. Sub-mandibular gland inflammation/infection 9. CKD 10. Abnormal liver function testing, fatty liver 11. Anemia PLAN: 1. Continue ASA +/- Plavix 2. Continue Norvasc 3. Continue Prinivil with caution and close monitoring of renal function 4. Continue Toprol XL 5. Continue Lipitor 6. Continue PO Lasix with caution and close monitoring of renal function 7. Recommend MPI study as outpatient for further evaluation of her CAD Rishabh Wong M.D.
[2017-12-17] MEDS ORDERED: FUROSEMIDE 40 MG/4 ML INJECTABLE VIAL IVPUSH ONE ×2 (09:45→12:45)
[2017-12-17] MEDS ORDERED: METOPROLOL SUCCINATE 50 MG TAB.SR.24H (FP) PO SCH (10:00)
[2017-12-17] MEDS ORDERED: FUROSEMIDE 40 MG TABLET (FP) PO SCH ×2 (10:00)
[2017-12-17] MEDS ORDERED: CLOPIDOGREL BISULFATE 75 MG TABLET (FP) PO SCH (10:00)
[2017-12-17] MEDS ORDERED: LISINOPRIL 20 MG TABLET (FP) PO SCH (10:00)
[2017-12-17] MEDS ORDERED: amLODIPine BESYLATE 5 MG TABLET (FP) PO SCH (10:00)
[2017-12-17] MEDS ORDERED: ASPIRIN COATED 81 MG TABLET.EC PO SCH (10:00)
--- NOTE | 2017-12-17 11:42 | PN ---
Progress Note, Physician History of Present Illness: Feeling better. No pain under jaw. - Current Medication List Current Medications: Active Medications Amlodipine Besylate (Norvasc -) 5 mg PO DAILY [facility] Last Admin: 12/17/17 09:50 Dose: 5 mg Artificial Tears (Artificial Tears) 1 drop OU Q6H PRN PRN Reason: FOR ITCHING Aspirin (Ecotrin -) 81 mg PO DAILY [facility] Last Admin: 12/17/17 09:50 Dose: 81 mg Atorvastatin Calcium (Lipitor -) 80 mg PO HS [facility] Last Admin: 12/16/17 21:11 Dose: 80 mg Clopidogrel Bisulfate (Plavix -) 75 mg PO DAILY [facility] Last Admin: 12/17/17 09:50 Dose: 75 mg Furosemide (Lasix -) 40 mg PO DAILY [facility] Last Admin: 12/17/17 09:50 Dose: 40 mg Ampicillin Sodium/Sulbactam (Sodium 3 gm/ Sodium Chloride) 100 mls @ 200 mls/ hr IVPB Q8H-IV [facility] Last Admin: 12/17/17 09:49 Dose: 200 mls/hr Clindamycin Phosphate (Cleocin 300 Mg Premix Ivpb) 300 mg in 50 mls @ 100 mls/ hr IVPB Q8H-IV [facility] Last Admin: 12/17/17 11:05 Dose: 100 mls/hr Insulin Aspart (Novolog Vial Sliding Scale -) 1 vial SQ TIDAC [facility] PRN Reason: Protocol Last Admin: 12/17/17 11:34 Dose: 4 units Insulin Detemir (Levemir Vial) 20 units SQ AM [facility] Last Admin: 12/17/17 06:23 Dose: 20 units Insulin Detemir (Levemir Vial) 30 units SQ HS [facility] Last Admin: 12/16/17 21:09 Dose: 30 units Lisinopril (Prinivil) 20 mg PO DAILY [facility] Last Admin: 12/17/17 09:49 Dose: 20 mg Metoprolol Succinate (Toprol Xl -) 50 mg PO DAILY [facility] Last Admin: 12/17/17 09:50 Dose: 50 mg - Objective Vital Signs: Vital Signs Temperature 97.9 F 12/17/17 06:00 Pulse Rate 67 12/17/17 06:00 Respiratory Rate 18 12/17/17 06:00 Blood Pressure 116/52 12/17/17 06:00 O2 Sat by Pulse Oximetry (%) 100 12/16/17 20:10 Constitutional: Yes: Well Nourished, No Distress, Calm Neck: Yes: Other (R SMG minimal residual induration. Mild overlying subQ edema. no crepitance. no erythema) Labs: CBC, BMP 12/17/17 06:00 12/17/17 06:00 INR, PTT INR 1.09 (0.82-1.09) 12/15/17 08:50 Problem List - Problems (1) Sialadenitis Assessment/Plan: Right submandibular gland sialadenitis, likely postviral. Ongoing improvement on fluids, abx. - No prior history - Supportive measures advised -- hydration (as able given her recent overload), warm compresses, massage anterograde, lemon drops. - Enlarged nodes in neck - likely reactive. Should f/u me or PMD in 1 month to ensure improvement. Mediastinal nodes of unclear significant - defer to primary team. Tonsilar enhancement likely part of same infectious process in her neck and there is no e/o mass. - No WBC elevation. Fevers resolved. - Tight DM2 control important. - ID consulting, note pending. On Unasyn, clindamycin. - Primary medical team management for medical, cardiac issues Please have the patient see me in one month to re-evaluate in my [place] office. Thank you for this consultation, please call with further questions. Code(s): K11.20 - SIALOADENITIS, UNSPECIFIED
[2017-12-17] MEDS ORDERED: PT OWN MED DRAWER 7, Y5N ONE (12:28)
--- NOTE | 2017-12-17 13:50 | PN ---
Physical Exam: SUBJECTIVE: Patient seen and examined at bedside. No acute overnight events. Denies any chest pain, SOB, n/v/d, erythema or swelling, submandibular pain, fevers, chills. OBJECTIVE: Vital Signs Period Temp Pulse Resp BP Sys/Wilson Pulse Ox Last 24 Hr 97.8 F-98.7 F 67-87 18-96 110-140/50-72 100-100 GENERAL: The patient is awake, alert, and fully oriented, in no acute distress. HEAD: Normal with no signs of trauma. ENT: Ears normal, nares patent, oropharynx clear without exudates, moist mucous membranes. NECK: Trachea midline, full range of motion, R submandibular region mildly swollen, not erythematous or tender LUNGS: Breath sounds equal, clear to auscultation bilaterally, no wheezes, no crackles, no accessory muscle use. HEART: Regular rate and rhythm, S1, S2 without murmur, rub or gallop. ABDOMEN: Soft, nontender, nondistended, normoactive bowel sounds, no guarding, no rebound, no hepatosplenomegaly, no masses. EXTREMITIES: 2+ pulses, warm, well-perfused, no edema. SKIN: Warm, dry, normal turgor, no rashes or lesions noted Laboratory Results - last 24 hr 12/14/17 12/15/17 12/16/17 18:18 06:05 16:14 WBC RBC Hgb Hct MCV MCH MCHC RDW Plt Count MPV PTT (Actin FS) Sodium Potassium Chloride Carbon Dioxide Anion Gap BUN Creatinine POC Glucometer 226 Random Glucose Calcium Phosphorus Magnesium Hep A IgM Ab Confirm Negative Hepatitis A Ab Total Positive H Hep Bs Antigen Negative Hep Bs Antibody Reactive Hep B Core Total Ab Negative Hep B Core IgM Ab Negative Hepatitis C Antibody 0.3 Mumps Virus IgG Ab 43.2 12/16/17 12/17/17 12/17/17 21:07 06:00 06:00 WBC 4.9 RBC 3.15 L Hgb 8.8 L Hct 26.8 L MCV 85.1 MCH 27.9 MCHC 32.8 RDW 15.1 Plt Count 162 MPV 9.7 PTT (Actin FS) 30.2 Sodium Potassium Chloride Carbon Dioxide Anion Gap BUN Creatinine POC Glucometer 274 Random Glucose Calcium Phosphorus Magnesium Hep A IgM Ab Confirm Hepatitis A Ab Total Hep Bs Antigen Hep Bs Antibody Hep B Core Total Ab Hep B Core IgM Ab Hepatitis C Antibody Mumps Virus IgG Ab 12/17/17 12/17/17 12/17/17 06:00 06:00 11:31 WBC RBC Hgb Hct MCV MCH MCHC RDW Plt Count MPV PTT (Actin FS) Sodium 140 Potassium 3.9 Chloride 106 Carbon Dioxide 26 Anion Gap 8 BUN 25 H Creatinine 0.8 POC Glucometer 172 201 Random Glucose 137 H Calcium 8.1 L Phosphorus 4.8 Magnesium 2.2 Hep A IgM Ab Confirm Hepatitis A Ab Total Hep Bs Antigen Hep Bs Antibody Hep B Core Total Ab Hep B Core IgM Ab Hepatitis C Antibody Mumps Virus IgG Ab Active Medications Generic Name Dose Route Start Last Admin Trade Name Freq PRN Reason Stop Dose Admin Amlodipine Besylate 5 mg 12/17/17 10:00 12/17/17 09:50 Norvasc - PO 5 mg DAILY GAUDENCIO Administration Artificial Tears 1 drop 12/16/17 19:36 12/17/17 12:37 Artificial Tears OU 1 drop Q6H PRN Administration FOR ITCHING Aspirin 81 mg 12/17/17 10:00 12/17/17 09:50 Ecotrin - PO 81 mg DAILY GAUDENCIO Administration Atorvastatin Calcium 80 mg 12/16/17 22:00 12/16/17 21:11 Lipitor - PO 80 mg HS GAUDENCIO Administration Clopidogrel Bisulfate 75 mg 12/17/17 10:00 12/17/17 09:50 Plavix - PO 75 mg DAILY GAUDENCIO Administration Furosemide 40 mg 12/17/17 10:00 12/17/17 09:50 Lasix - PO 40 mg DAILY GAUDENCIO Administration Ampicillin Sodium/Sulbactam 100 mls @ 200 mls/hr 12/17/17 02:00 12/17/17 09: 49 Sodium 3 gm/ Sodium Chloride IVPB 200 mls/hr Q8H-IV GAUDENCIO Administration Clindamycin Phosphate 300 mg in 50 mls @ 100 mls/hr 12/17/17 02:00 12/17/17 11:05 Cleocin 300 Mg Premix Ivpb IVPB 100 mls/hr Q8H-IV GAUDENCIO Administration Insulin Aspart 1 vial 12/17/17 07:00 12/17/17 11:34 Novolog Vial Sliding Scale - SQ 4 units TIDAC GAUDENCIO Administration Protocol Insulin Detemir 20 units 12/17/17 07:00 12/17/17 06:23 Levemir Vial SQ 20 units AM GAUDENCIO Administration Insulin Detemir 30 units 12/16/17 22:00 12/16/17 21:09 Levemir Vial SQ 30 units HS GAUDENCIO Administration Lisinopril 20 mg 12/17/17 10:00 12/17/17 09:49 Prinivil PO 20 mg DAILY GAUDENCIO Administration Metoprolol Succinate 50 mg 12/17/17 10:00 12/17/17 09:50 Toprol Xl - PO 50 mg DAILY GAUDENCIO Administration ASSESSMENT/PLAN: 62 year old woman with PMH of IDDM, HTN, CAD s/p IA/stents, suspected CHF, and PVD admitted for treatment of sialadenitis #Sialadenitis: improving, no longer erythematous, wet machine tender to palpation -patient now afebrile -white count normalized -switch to PO abx-augmentin 875 BID and clindamycin 300 TID -ID on board -ENT on board, appreciate recommendations, f/u with dr. rivera at [facility]. #CHF exacerbation: likely 2/2 fluid administration -ECHO - normal -Kendrick, strict I&Os, daily weights -continue lasix to 40mg PO QD -continue metoprolol -continue lisinopril -continue norvasc #Troponinemia: resolved. likely 2/2 epi administration in ED after episode of SOB -troponins peaked at 0.23 --> 0.21 -Cardiology consulted, unlikely NSTEMI -no need for heparin #Transaminitis - improving, likely 2/2 congestion from fluid overload -Abdominal U/S - hepatic steatosis, f/u as an outpatient #CAD s/p stents -cont ASA, Plavix, Lipitor #IDDM -Levemir 20mg in AM -Levemir 30mg at night -ISS/BGM TIDAC #FEN: No standing fluids Replete lytes as necessary in AM Diabetic/sodium diet #Prophylaxis: -SCDs #Disposition: Continue to monitor on med-surg Visit type - Emergency Visit Emergency Visit: No - New Patient This patient is new to me today: No - Critical Care Critical Care patient: No
--- NOTE | 2017-12-17 14:59 | PN ---
Progress Note, Physician History of Present Illness: patient stable swelling much better still with tenderness patient has been switched by primary team to oral abx - Current Medication List Current Medications: Active Medications Amlodipine Besylate (Norvasc -) 5 mg PO DAILY [facility] Last Admin: 12/17/17 09:50 Dose: 5 mg Amoxicillin/Clavulanate Potassium (Augmentin - 875mg Tablet) 1 tab PO BID@0800, 1730 [facility] Artificial Tears (Artificial Tears) 1 drop OU Q6H PRN PRN Reason: FOR ITCHING Last Admin: 12/17/17 12:37 Dose: 1 drop Aspirin (Ecotrin -) 81 mg PO DAILY [facility] Last Admin: 12/17/17 09:50 Dose: 81 mg Atorvastatin Calcium (Lipitor -) 80 mg PO HS [facility] Last Admin: 12/16/17 21:11 Dose: 80 mg Clindamycin HCl (Cleocin -) 300 mg PO TID [facility] Clopidogrel Bisulfate (Plavix -) 75 mg PO DAILY [facility] Last Admin: 12/17/17 09:50 Dose: 75 mg Furosemide (Lasix -) 40 mg PO DAILY [facility] Last Admin: 12/17/17 09:50 Dose: 40 mg Insulin Aspart (Novolog Vial Sliding Scale -) 1 vial SQ TIDAC [facility] PRN Reason: Protocol Last Admin: 12/17/17 11:34 Dose: 4 units Insulin Detemir (Levemir Vial) 20 units SQ AM [facility] Last Admin: 12/17/17 06:23 Dose: 20 units Insulin Detemir (Levemir Vial) 30 units SQ HS [facility] Last Admin: 12/16/17 21:09 Dose: 30 units Lisinopril (Prinivil) 20 mg PO DAILY [facility] Last Admin: 12/17/17 09:49 Dose: 20 mg Metoprolol Succinate (Toprol Xl -) 50 mg PO DAILY [facility] Last Admin: 12/17/17 09:50 Dose: 50 mg - Objective Vital Signs: Vital Signs Temperature 97.8 F 12/17/17 10:00 Pulse Rate 72 12/17/17 10:00 Respiratory Rate 18 12/17/17 10:00 Blood Pressure 140/65 12/17/17 10:00 O2 Sat by Pulse Oximetry (%) 100 12/16/17 20:10 Constitutional: Yes: No Distress, Calm HENT: Yes: Other (submandibular swelling better) Cardiovascular: Yes: Regular Rate and Rhythm Respiratory: Yes: Regular, CTA Bilaterally Gastrointestinal: Yes: Normal Bowel Sounds, Soft Musculoskeletal: Yes: Other Extremities: Yes: Other Integumentary: Yes: Other Neurological: Yes: Alert, Oriented Psychiatric: Yes: Alert Labs: CBC, BMP 12/17/17 06:00 12/17/17 06:00 INR, PTT INR 1.09 (0.82-1.09) 12/15/17 08:50 Assessment/Plan Problem List - Problems (1) Sialadenitis. Code(s): K11.20 - SIALOADENITIS, UNSPECIFIED fever cause exactly not known patient has been started on unasyn plan patient switched to oral abx by primary team see how patient does
[2017-12-17 15:37] VITALS: BP 116/50; PULSE 62; TEMP 98.6
[2017-12-17] MEDS ORDERED: AMOX TR/POT CLAV 875MG/125MG TABLETS (FP) PO SCH (17:30)
--- NOTE | 2017-12-17 18:32 | PN ---
Teaching Attending Note Name of Resident: Raghav Al ATTENDING PHYSICIAN STATEMENT I saw and evaluated the patient. I reviewed the resident's note and discussed the case with the resident. I agree with the resident's findings and plan as documented. SUBJECTIVE: No fever or chills . has no abd pain , no neck pain , no OSB , LE edema is better OBJECTIVE: NAD HEENT: R submandibular gland is non tender and smaller in size. . No LAP in L . parotids are nl. MMM, no JVD. Cv : RRR, 2/6 Sm at USB, NO JVD Lungs : CTAB Ext : 1+ pitting edema . 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 She was found to have saialdenitis . Also developed pulm edema in Er after IVF , and trop elevation after sq Epi 1- Sialadenitis: could be bacterial or viral . no stones were seen - switch to augmentin and clinda - blood cx neg to date 48 hr - f/u with ENT to evaluate LAP . 2- Acute diastolic CHF exacerbation . Improved - echo with nl EF , with mild MR and TR - cont po lasix - cont BB and ACEI - sudheer MPI as out pt 3- NSTEMI: trop trended down - cont ASA and plavix at home dose - cont BB and ACEI 4- NAEL: resolved 5- Transaminitis : likely due to hepatic congestion on a back ground of steatosis improved , 6- IDDM: - cont home regimen at dc 7- HTN: cont lisinopril and toprol DC home . f/u with [facility] and [facility] LAP in mediastinum and neck patinet was made aware 12/15/17 04:15 Nasopharyngeal Swab Respiratory Virus (PCR) - Preliminary 12/15/17 04:45 Urine - Urine Kendrick Urine Culture - Final NO GROWTH OBTAINED 12/14/17 18:18 Blood - Peripheral Venous Blood Culture - Preliminary NO GROWTH OBTAINED AFTER 48 HOURS, INCUBATION TO CONTINUE FOR 3 DAYS. 12/14/17 18:18 Blood - Peripheral Venous Blood Culture - Preliminary NO GROWTH OBTAINED AFTER 48 HOURS, INCUBATION TO CONTINUE FOR 3 DAYS. 12/15/17 04:45 Urine - Urine Kendrick Legionella Antigen - Final 12/15/17 04:45 Urine - Urine Kendrick Streptococcus pneumoniae Antigen (M - Final 12/14/17 18:36 Nasopharyngeal Swab Influenza Types A,B Antigen (ANDREA) - Final 12/14/17 18:36 Nasopharyngeal Swab - Final
--- NOTE | 2017-12-17 20:11 | DS ---
Physical Exam: SUBJECTIVE: Patient seen and examined OBJECTIVE: Vital Signs Period Temp Pulse Resp BP Sys/Wilson Pulse Ox Last 24 Hr 97.8 F-98.6 F 62-72 18-18 116-140/50-65 PHYSICAL EXAM GENERAL: The patient is awake, alert, and fully oriented, in no acute distress. HEAD: Normal with no signs of trauma. EYES: PERRL, extraocular movements intact, sclera anicteric, conjunctiva clear. ENT: Ears normal, nares patent, oropharynx clear without exudates, moist mucous membranes. NECK: Trachea midline, full range of motion, supple. LUNGS: Breath sounds equal, clear to auscultation bilaterally, no wheezes, no crackles, no accessory muscle use. HEART: Regular rate and rhythm, S1, S2 without murmur, rub or gallop. ABDOMEN: Soft, nontender, nondistended, normoactive bowel sounds, no guarding, no rebound, no hepatosplenomegaly, no masses. EXTREMITIES: 2+ pulses, warm, well-perfused, no edema. NEUROLOGICAL: Cranial nerves II through XII grossly intact. Normal speech, gait not observed. PSYCH: Normal mood, normal affect. SKIN: Warm, dry, normal turgor, no rashes or lesions noted. LABS Laboratory Results - last 24 hr 12/14/17 12/15/17 12/16/17 18:18 06:05 21:07 WBC RBC Hgb Hct MCV MCH MCHC RDW Plt Count MPV PTT (Actin FS) Sodium Potassium Chloride Carbon Dioxide Anion Gap BUN Creatinine POC Glucometer 274 Random Glucose Calcium Phosphorus Magnesium Hep A IgM Ab Confirm Negative Hepatitis A Ab Total Positive H Hep Bs Antigen Negative Hep Bs Antibody Reactive Hep B Core Total Ab Negative Mumps Virus IgG Ab 43.2 12/17/17 12/17/17 12/17/17 06:00 06:00 06:00 WBC 4.9 RBC 3.15 L Hgb 8.8 L Hct 26.8 L MCV 85.1 MCH 27.9 MCHC 32.8 RDW 15.1 Plt Count 162 MPV 9.7 PTT (Actin FS) 30.2 Sodium 140 Potassium 3.9 Chloride 106 Carbon Dioxide 26 Anion Gap 8 BUN 25 H Creatinine 0.8 POC Glucometer Random Glucose 137 H Calcium 8.1 L Phosphorus 4.8 Magnesium 2.2 Hep A IgM Ab Confirm Hepatitis A Ab Total Hep Bs Antigen Hep Bs Antibody Hep B Core Total Ab Mumps Virus IgG Ab 12/17/17 12/17/17 12/17/17 06:00 11:31 16:33 WBC RBC Hgb Hct MCV MCH MCHC RDW Plt Count MPV PTT (Actin FS) Sodium Potassium Chloride Carbon Dioxide Anion Gap BUN Creatinine POC Glucometer 172 201 203 Random Glucose Calcium Phosphorus Magnesium Hep A IgM Ab Confirm Hepatitis A Ab Total Hep Bs Antigen Hep Bs Antibody Hep B Core Total Ab Mumps Virus IgG Ab HOSPITAL COURSE: Date of Admission:12/15/17 62yo woman with PMH of IDDM, HTN, CAD s/p [place]/stents, suspected CHF, PVD who presented to the hospital with fever and enlarged, exquisitely tender R submandibular gland. Patient was given fluids in the ER and sent for CT scan of the head to rule out sialolithiasis. She became short of breath near the CT scanner and was administered epinephrine. After the CT scan it was found that she had a mild troponinemia, unlikely ACS in origin (EKG was normal). Patient was treated with antibiotics IV (Unasyn and clindamycin). Patient was transitioned to PO antibiotics after her clinical symptoms had improved and she remained afebrile. The tenderness and erythema around her submandibular region resolved, and patient was sent home on PO augmentin and clindamycin for a total of 10 days of antibiotics since initiation. She was also given 40 of lasix daily to account for a mild CHF picture and told to follow with her primary care physician. Date of Discharge: 12/17/17 Minutes to complete discharge: 35 Discharge Summary Reason For Visit: SIALOADENITIS, PULMONARY EDEMA Condition: Stable - Instructions Diet, Activity, Other Instructions: You were admitted to the hospital because of infection of salivary gland. You were treated with antibiotics accordingly and now ready to be discharged home. Please take clindamycin 1 tablet 3 times a day, augmentin 1 tablet twice a day for 10 more days and lasix 1 tablet once a day till further instruction given by your percussion instrument repairer. You will stop taking metformin for now because taking metformin and lasix in the setting of heart failure will damage your kidney. You need to check your sugar regularly and follow up with your primary doctor within 2 weeks to discuss whether you can be restarted on metformin, depend on your daily sugar level. You also need to follow up with Dr. Dc (ENT)[place] office. in 1 month to evaluate neck lymph nodes. Also follow up with your primary doctor to repeat imaging of chest to ensure mediastinal lymph nodes are better. Also cardiology (Dr. Stanford) to decide how much longer you should be taking lasix. Referrals: Celeste Sivla MD [Staff Physician] - Aneta Butcher MD [Primary Care Provider] - Abdulkadir Stanford MD [Staff Physician] - Zackary Seymour MD [Staff Physician] - Disposition: HOME - Home Medications Comprehensive Discharge Medication List: Ambulatory Orders Glipizide 10 mg PO DAILY 01/02/12 Saxagliptin HCl [Onglyza] 5 mg PO HS 01/02/12 Aspirin [ASA -] 81 mg PO DAILY 08/19/12 Insulin Glargine,Hum.rec.anlog [Lantus] 60 unit SCJ HS 08/19/12 Lisinopril [Prinivil] 10 mg PO BID 08/19/12 Amlodipine Besylate 10 mg PO DAILY 12/14/17 Atorvastatin Ca [Lipitor] 80 mg PO HS 12/14/17 Clopidogrel Bisulfate [Plavix -] 75 mg PO DAILY 12/14/17 Ferrous Sulfate 325 mg PO DAILY 12/14/17 Insulin NPH Hum/Reg Insulin Hm [Novolin 70-30 100 Unit/ml Vial] 30 unit SQ DAILY 12/14/17 Metoprolol Succinate [Toprol XL -] 25 mg PO DAILY 12/14/17 Sitagliptin Phosphate [Januvia -] 100 mg PO DAILY 12/14/17 Amox-Tr/K Cl [Augmentin 875-125mg Tablet -] 1 tab PO BID@0800,1730 #20 tablet Clindamycin [Cleocin -] 300 mg PO TID #30 capsule 12/17/17 Furosemide [Lasix -] 40 mg PO DAILY #14 tablet 12/17/17 This patient is new to me today: No Emergency Visit: No Critical Care patient: No - Discharge Referral Referred to [facility] No
[2017-12-17] MEDS ORDERED: CLINDAMYCIN HCL 150 MG CAPSULE (FP) PO SCH (22:00)
== END 2017-12-17 19:21 | disposition home or self-care (01) | DRG 154 ==
LOC: JER 16:59 → JERBED 12-15 01:40 → UNDOADMIN 12-15 02:22 → JERBED 12-15 02:22 → J6S 12-16 15:03
PROVIDERS: ADMIT Internal Medicine; ATTEND Internal Medicine
DX: K11.20 Sialoadenitis, unspecified (principal); I21.4 Non-ST elevation (NSTEMI) myocardial infarction; J81.0 Acute pulmonary edema; I50.33 Acute on chronic diastolic (congestive) heart failure; I13.0 Hypertensive heart and chronic kidney disease with heart failure and stage 1 through stage 4 chronic kidney disease, or unspecified chronic kidney disease; N17.9 Acute kidney failure, unspecified; M31.8 Other specified necrotizing vasculopathies; L97.528 Non-pressure chronic ulcer of other part of left foot with other specified severity; I42.8 Other cardiomyopathies; E78.5 Hyperlipidemia, unspecified; I25.10 Atherosclerotic heart disease of native coronary artery without angina pectoris; D64.9 Anemia, unspecified; J06.9 Acute upper respiratory infection, unspecified; T50.8X5A Adverse effect of diagnostic agents, initial encounter; I25.2 Old myocardial infarction; E11.51 Type 2 diabetes mellitus with diabetic peripheral angiopathy without gangrene; R74.0 Nonspecific elevation of levels of transaminase and lactic acid dehydrogenase [LDH]; E11.65 Type 2 diabetes mellitus with hyperglycemia; E11.22 Type 2 diabetes mellitus with diabetic chronic kidney disease; N18.9 Chronic kidney disease, unspecified; Z89.422 Acquired absence of other left toe(s); Z79.4 Long term (current) use of insulin; Y92.89 Other specified places as the place of occurrence of the external cause
CPT/HCPCS: 36415; 70491-TC; 71045-TC; 71046-TC; 76536-TC; 76705-TC; 80048; 80053; 81003; 81015; 82272; 82550; 82553; 82962; 83735; 83880; 84100; 84443; 84484; 85025; 85027; 85610; 85730; 86704; 86705; 86706; 86708; 86735; 86803; 87040; 87070; 87077; 87086; 87205; 87340; 87389; 87633; 87804; 87899; 93005; 93010; 93306-TC; 99285-25; J1644

== ENCOUNTER 2022-12-20 04:12 | Day surgery (SDC) | payer OTHER ==
[2022-12-14 12:46] VITALS: BMI 32.5
[2022-12-20] MEDS ORDERED: LIDOCAINE HCL 1%, 10 MG/ML (20ML VIAL) ONE (08:06)
[2022-12-20] MEDS ORDERED: HEPARIN NA (PORCINE) 5,000 UNITS/ML 1ML VIAL ONE (08:06)
[2022-12-20] MEDS ORDERED: MIDAZOLAM HCL 2 MG/2 ML SINGLE DOSE VIAL ONE ×2 (09:09→09:53)
[2022-12-20] MEDS ORDERED: PROPOFOL 60 ML ONE (09:17)
[2022-12-20] MEDS ORDERED: ceFAZolin SODIUM 1 GM VIAL IVPB ONE (09:20)
[2022-12-20] MEDS ORDERED: LIDOCAINE HCL 1%, 10 MG/ML (20ML VIAL) INF ONE ×3 (09:22)
[2022-12-20] MEDS ORDERED: ONDANSETRON 4 MG/2 ML VIAL ONE (10:21)
[2022-12-20] MEDS ORDERED: PROTAMINE SULFATE 50 MG/5 ML VIAL ONE (10:21)
[2022-12-20] MEDS ORDERED: DEXAMETHASONE SOD PHOSPHATE 4 MG/1 ML VIAL ONE (10:21)
[2022-12-20] MEDS ORDERED: ceFAZolin SODIUM 1 GM VIAL ONE (10:21)
[2022-12-20] MEDS ORDERED: RIVAROXABAN 2.5 MG TABLET PO SCH (11:00)
[2022-12-20] MEDS ORDERED: ONDANSETRON 4 MG/2 ML VIAL IVPUSH PRN (11:02)
[2022-12-20] MEDS ORDERED: LACTATED RINGERS SOLUTION 1,000 ML IV SCH (11:15)
[2022-12-20 13:40] VITALS: BP 136/53; PULSE 72; RESP 18; TEMP 97
== END 2022-12-20 14:04 | disposition home or self-care (01) ==
LOC: JASU-SURG 04:12
PROVIDERS: ATTEND Surgery Vascular Surgery
PROC: 047L3Z1 Dilation of Left Femoral Artery using Drug-Coated Balloon, Percutaneous Approach (ICD-10-PCS; 2022-12-20)
PROC: 047N3Z1 Dilation of Left Popliteal Artery using Drug-Coated Balloon, Percutaneous Approach (ICD-10-PCS; principal; 2022-12-20 09:00)
DX: E11.621 Type 2 diabetes mellitus with foot ulcer (principal); I70.74 Atherosclerosis of other type of bypass graft(s) of the left leg with ulceration; Z79.4 Long term (current) use of insulin; L97.529 Non-pressure chronic ulcer of other part of left foot with unspecified severity
CPT/HCPCS: 37225; C1885; 76000-TC-FY; 82962; 94760; C1887; C2623; J1644

== ENCOUNTER 2022-12-25 08:40 | Inpatient (IN) | payer OTHER ==
[2022-12-25 08:50] VITALS: BMI 32.5
[2022-12-25 10:30] LABS: BASO % 0.4 % (0-2.0); EOS % 2.8 % (0-4.5); HEMATOCRIT 39.5 % (32.4-45.2); LYMPH % 18.3 % (8-40); MCH 28.9 pg (25.7-33.7); MCHC 32.9 g/dl (32.0-36.0); MEAN CELL VOLUME 87.7 fl (80-96); MEAN PLT VOLUME 9.3 fl (7.5-11.1); NEUT % 72.5 % (42.8-82.8); PLATELET COUNT 218 10^3/uL (134-434); RDW 14.4 % (11.6-15.6); WHITE BLOOD COUNT 7.9 K/mm3 (4.0-10.0)
[2022-12-25 10:34] LABS: INR 1.03 (0.83-1.09); PROTHROMBIN TIME (PATIENT) 11.9 SEC (9.7-13.0)
[2022-12-25 10:36] LABS: ACTIVATED PTT 37.6 SECONDS (25.2-36.5)
[2022-12-25 10:50] LABS: CALCIUM 9.2 mg/dL (8.5-10.1)
[2022-12-25 10:51] LABS: ALBUMIN 3.6 g/dl (3.4-5.0); BLOOD UREA NITROGEN 24.7 mg/dL (7-18)
[2022-12-25 10:55] LABS: TOT PROT 8.1 g/dl (6.4-8.2)
[2022-12-25 10:56] LABS: BILIRUBIN,TOTAL 0.4 mg/dL (0.2-1)
[2022-12-25] MEDS ORDERED: ACETAMINOPHEN 325 MG TABLET (FP) PO PRN ×3 (13:52→16:39)
[2022-12-25] MEDS ORDERED: PANTOPRAZOLE 20 MG TABLET PO ONE (16:34)
[2022-12-25] MEDS ORDERED: traMADol HCL 50 MG TABLET PO PRN (16:36)
[2022-12-25] MEDS: INSULIN SLIDING SCALE (NOVOLOG) 1 VIAL SQ SCH ×2 (16:38→21:30)
[2022-12-25] MEDS: INSULIN (LEVEMIR) 100 UNITS/ML UNITS SQ SCH (18:17)
[2022-12-26] MEDS: INSULIN (LEVEMIR) 100 UNITS/ML UNITS SQ SCH ×2 (06:27→16:59)
[2022-12-26] MEDS ORDERED: glipiZIDE 5 MG TABLET (FP) PO SCH (07:00)
[2022-12-26] MEDS ORDERED: amLODIPine BESYLATE 10 MG TABLET (FP) PO SCH (10:00)
[2022-12-26] MEDS ORDERED: PANTOPRAZOLE 40 MG TABLET PO SCH (10:00)
[2022-12-26] MEDS ORDERED: ISOSORBIDE MONONITRATE 30 MG TAB.SR.24H (FP) PO SCH (10:00)
[2022-12-26] MEDS ORDERED: LOSARTAN POTASSIUM 50 MG TABLET PO SCH (10:00)
[2022-12-26] MEDS ORDERED: LIDOCAINE HCL 1%, 10 MG/ML (20ML VIAL) NR ONE (12:00)
[2022-12-26] MEDS ORDERED: ACETAMINOPHEN 325 MG TABLET (FP) PO PRN (13:43)
[2022-12-26] MEDS: CEFTRIAXONE 2 GM in DEXTROSE 5%-WATER 100 ML IVPB SCH (15:05)
[2022-12-26] MEDS: traMADol HCL 50 MG TABLET PO PRN (15:06)
[2022-12-26] MEDS ORDERED: INSULIN (NOVOLOG) ASPART 100 UNITS/ML 10ML VIAL ONE ×3 (16:53→21:54)
[2022-12-26] MEDS: INSULIN SLIDING SCALE (NOVOLOG) 1 VIAL SQ SCH ×2 (16:58→21:57)
[2022-12-26] MEDS: glipiZIDE 5 MG TABLET (FP) PO SCH (16:58)
[2022-12-27] MEDS: INSULIN (LEVEMIR) 100 UNITS/ML UNITS SQ SCH ×2 (06:02→17:02)
[2022-12-27] MEDS: glipiZIDE 5 MG TABLET (FP) PO SCH ×2 (06:03→17:01)
[2022-12-27] MEDS: INSULIN SLIDING SCALE (NOVOLOG) 1 VIAL SQ SCH ×4 (06:03→21:48)
[2022-12-27] MEDS: LOSARTAN POTASSIUM 50 MG TABLET PO SCH (10:37)
[2022-12-27] MEDS: ISOSORBIDE MONONITRATE 30 MG TAB.SR.24H (FP) PO SCH (10:37)
[2022-12-27] MEDS: CEFTRIAXONE 2 GM in DEXTROSE 5%-WATER 100 ML IVPB SCH (10:38)
[2022-12-27] MEDS: PANTOPRAZOLE 40 MG TABLET PO SCH (10:38)
[2022-12-27] MEDS: amLODIPine BESYLATE 10 MG TABLET (FP) PO SCH (10:38)
[2022-12-27 11:27] LABS: HEMOGLOBIN 12.4 GM/dL (10.7-15.3); MCHC 32.6 g/dl (32.0-36.0); MEAN CELL VOLUME 89.1 fl (80-96); MEAN PLT VOLUME 9.2 fl (7.5-11.1); PLATELET COUNT 202 10^3/uL (134-434); RBC 4.27 M/mm3 (3.60-5.2); RDW 14.7 % (11.6-15.6); WHITE BLOOD COUNT 6.5 K/mm3 (4.0-10.0)
[2022-12-27] MEDS ORDERED: INSULIN (NOVOLOG) ASPART 100 UNITS/ML 10ML VIAL ONE ×2 (11:40→17:56)
[2022-12-27 13:00] LABS: CALCIUM 8.8 mg/dL (8.5-10.1)
[2022-12-27 13:01] LABS: BLOOD UREA NITROGEN 25.5 mg/dL (7-18)
[2022-12-27 13:04] LABS: CREATININE 1.2 mg/dL (0.55-1.3)
[2022-12-27] MEDS: traMADol HCL 50 MG TABLET PO PRN (16:59)
[2022-12-28] MEDS ORDERED: INSULIN (NOVOLOG) ASPART 100 UNITS/ML 10ML VIAL ONE (05:29)
[2022-12-28] MEDS: INSULIN SLIDING SCALE (NOVOLOG) 1 VIAL SQ SCH ×4 (06:02→22:20)
[2022-12-28] MEDS: glipiZIDE 5 MG TABLET (FP) PO SCH ×2 (06:02→17:03)
[2022-12-28] MEDS: INSULIN (LEVEMIR) 100 UNITS/ML UNITS SQ SCH ×2 (06:02→16:50)
[2022-12-28] MEDS: LOSARTAN POTASSIUM 50 MG TABLET PO SCH (09:49)
[2022-12-28] MEDS: ISOSORBIDE MONONITRATE 30 MG TAB.SR.24H (FP) PO SCH (09:49)
[2022-12-28] MEDS: PANTOPRAZOLE 40 MG TABLET PO SCH (09:49)
[2022-12-28] MEDS: RIVAROXABAN 2.5 MG TABLET PO SCH ×3 (09:49→22:24)
[2022-12-28] MEDS: CLOPIDOGREL BISULFATE 75 MG TABLET (FP) PO SCH (09:49)
[2022-12-28] MEDS: amLODIPine BESYLATE 10 MG TABLET (FP) PO SCH (09:49)
[2022-12-28] MEDS: CEFTRIAXONE 2 GM in DEXTROSE 5%-WATER 100 ML IVPB SCH (12:06)
[2022-12-28] MEDS: COLLAGENASE CLOSTRIDIUM HIST. 30 GRAMS TUBE TP SCH (17:03)
[2022-12-28] MEDS: traMADol HCL 50 MG TABLET PO PRN (21:52)
[2022-12-29 03:17] VITALS: TEMP 98.1
[2022-12-29] MEDS: INSULIN SLIDING SCALE (NOVOLOG) 1 VIAL SQ SCH ×2 (06:26→11:50)
[2022-12-29] MEDS: INSULIN (LEVEMIR) 100 UNITS/ML UNITS SQ SCH (06:27)
[2022-12-29] MEDS: glipiZIDE 5 MG TABLET (FP) PO SCH (06:29)
[2022-12-29] MEDS: LOSARTAN POTASSIUM 50 MG TABLET PO SCH (09:41)
[2022-12-29] MEDS: CEFTRIAXONE 2 GM in DEXTROSE 5%-WATER 100 ML IVPB SCH (09:41)
[2022-12-29] MEDS: amLODIPine BESYLATE 10 MG TABLET (FP) PO SCH (09:41)
[2022-12-29] MEDS: PANTOPRAZOLE 40 MG TABLET PO SCH (09:41)
[2022-12-29] MEDS: CLOPIDOGREL BISULFATE 75 MG TABLET (FP) PO SCH (09:41)
[2022-12-29] MEDS: ISOSORBIDE MONONITRATE 30 MG TAB.SR.24H (FP) PO SCH (09:41)
[2022-12-29] MEDS: RIVAROXABAN 2.5 MG TABLET PO SCH (09:42)
[2022-12-29] MEDS: COLLAGENASE CLOSTRIDIUM HIST. 30 GRAMS TUBE TP SCH (09:48)
[2022-12-29] MEDS ORDERED: ERGOCALCIFEROL (VIT D2) 50,000 UNIT (1.25 MG) CAPSULE PO SCH (10:00)
[2022-12-29 11:28] VITALS: BP 150/55; PULSE 86; RESP 16
== END 2022-12-29 13:00 | disposition home or self-care (01) | DRG 629 ==
LOC: JER 08:40 → JERBED 09:36 → J6S 13:56
PROVIDERS: ADMIT Family Medicine; ATTEND Family Medicine
PROC: 0QBP0ZX Excision of Left Metatarsal, Open Approach, Diagnostic (ICD-10-PCS; 2022-12-28)
PROC: B518ZZA Fluoroscopy of Superior Vena Cava, Guidance (ICD-10-PCS; 2022-12-28)
PROC: 02HV33Z Insertion of Infusion Device into Superior Vena Cava, Percutaneous Approach (ICD-10-PCS; principal; 2022-12-29)
DX: E11.69 Type 2 diabetes mellitus with other specified complication (principal); L97.528 Non-pressure chronic ulcer of other part of left foot with other specified severity; M86.8X7 Other osteomyelitis, ankle and foot; E11.621 Type 2 diabetes mellitus with foot ulcer; D64.9 Anemia, unspecified; I25.10 Atherosclerotic heart disease of native coronary artery without angina pectoris; E11.51 Type 2 diabetes mellitus with diabetic peripheral angiopathy without gangrene; E11.610 Type 2 diabetes mellitus with diabetic neuropathic arthropathy; M21.962 Unspecified acquired deformity of left lower leg; I11.0 Hypertensive heart disease with heart failure; I50.9 Heart failure, unspecified; I25.2 Old myocardial infarction; Z95.5 Presence of coronary angioplasty implant and graft
CPT/HCPCS: 0241U-QW; 36415; 36569; 73630-TC-LT; 75820-TC-FY; 76000-TC-FY; 80048; 80053; 82962; 83036; 85025; 85027; 85610; 85730; 86850; 86900; 86901; 87040; 87070; 87075; 87205; 93005; 93010; 94760; 99285-25

== ENCOUNTER 2023-11-21 04:50 | Day surgery (SDC) | payer OTHER ==
[2023-11-20 09:52] VITALS: BMI 32.3
[~2023-11-21 04:50] MED LIST: HEPARIN NA (PORCINE) 5,000 UNITS/ML 1ML VIAL SQ ONE; LIDOCAINE HCL 1%, 10 MG/ML (20ML VIAL) NR ONE
[2023-11-21] MEDS ORDERED: NITROGLYCERIN 50 MG/10 ML VIAL IVPB ONE (07:58)
[2023-11-21] MEDS ORDERED: HEPARIN NA (PORCINE) 5,000 UNITS/ML 1ML VIAL ONE ×3 (07:58→08:07)
[2023-11-21] MEDS ORDERED: LIDOCAINE HCL 1%, 10 MG/ML (20ML VIAL) ONE (07:58)
[2023-11-21] MEDS ORDERED: ACETAMINOPHEN INJECTION 100 ML IVPB ONE (08:02)
[2023-11-21] MEDS ORDERED: DEXMEDETOMIDINE HCL 200 MCG/2 ML IVPB ONE (08:02)
[2023-11-21] MEDS ORDERED: SODIUM CHLORIDE 0.9% P/F 10 ML VIAL IJ ONE (08:08)
[2023-11-21] MEDS ORDERED: ceFAZolin SODIUM 1 GM VIAL ONE (08:08)
[2023-11-21] MEDS ORDERED: ONDANSETRON 4 MG/2 ML VIAL ONE (08:08)
[2023-11-21] MEDS ORDERED: LIDOCAINE HCL/PF 2% SDV 5ML VIAL ONE (08:08)
[2023-11-21] MEDS ORDERED: SUCCINYLCHOLINE CHLORIDE 200 MG/10 ML SYRINGE ONE (08:21)
[2023-11-21] MEDS ORDERED: MIDAZOLAM HCL 2 MG/2 ML SINGLE DOSE VIAL ONE ×2 (08:22→09:46)
[2023-11-21] MEDS ORDERED: ceFAZolin 2 GRAM PREMIX BAG IVPB ONE (09:40)
[2023-11-21] MEDS ORDERED: HEPARIN NA (PORCINE) 5,000 UNITS/ML 1ML VIAL SQ ONE (09:43)
[2023-11-21] MEDS ORDERED: LIDOCAINE HCL 1%, 10 MG/ML (20ML VIAL) NR ONE (09:44)
[2023-11-21] MEDS ORDERED: PROTAMINE SULFATE 50 MG/5 ML VIAL ONE (10:37)
[2023-11-21] MEDS ORDERED: oxyCODONE HCL 5 MG TABLET PO PRN (10:58)
[2023-11-21] MEDS ORDERED: LACTATED RINGERS SOLUTION 1,000 ML IV SCH (11:00)
[2023-11-21 13:10] VITALS: RESP 20; TEMP 97.8
[2023-11-21 15:23] VITALS: BP 120/56; PULSE 66
== END 2023-11-21 14:30 | disposition home or self-care (01) ==
LOC: JASU-SURG 04:50
PROVIDERS: ATTEND Surgery Vascular Surgery
PROC: 047L3Z1 Dilation of Left Femoral Artery using Drug-Coated Balloon, Percutaneous Approach (ICD-10-PCS; principal; 2023-11-21 09:30)
DX: I70.212 Atherosclerosis of native arteries of extremities with intermittent claudication, left leg (principal)
CPT/HCPCS: 37224; C1885; C2623; 36415; 76000-TC-FY; 82010; 82962; 86850; 86900; 86901; 94760; C1897; J1644

== ENCOUNTER 2024-05-06 14:31 | Inpatient (IN) | payer OTHER ==
[2024-05-06 16:43] LABS: BASO % 0.7 % (0-2.0); EOS % 4.6 % (0-4.5); HEMATOCRIT 35.7 % (32.4-45.2); HEMOGLOBIN 11.7 GM/dL (10.7-15.3); LYMPH % 17.7 % (8-40); MCH 28.8 pg (25.7-33.7); MCHC 32.8 g/dl (32.0-36.0); MEAN CELL VOLUME 87.8 fl (80-96); MEAN PLT VOLUME 9.6 fl (7.5-11.1); MONO % 7.7 % (3.8-10.2); NEUT % 69.3 % (42.8-82.8); PLATELET COUNT 205 10^3/uL (134-434); RBC 4.07 M/mm3 (3.60-5.2); RDW 14.2 % (11.6-15.6); WHITE BLOOD COUNT 7.5 K/mm3 (4.0-10.0)
[2024-05-06 16:58] LABS: ACTIVATED PTT 30.2 SECONDS (25.2-36.5); INR 1.05 (0.83-1.09); PROTHROMBIN TIME (PATIENT) 11.9 SEC (9.7-13.0)
[2024-05-06 17:08] LABS: POTASSIUM 4.6 mmol/L (3.5-5.1)
[2024-05-06 17:10] LABS: ALBUMIN 3.6 g/dl (3.4-5.0); BLOOD UREA NITROGEN 36.5 mg/dL (7-18); CALCIUM 8.7 mg/dL (8.5-10.1); MAGNESIUM 2.2 mg/dL (1.8-2.4)
[2024-05-06 17:13] LABS: CREATININE 1.3 mg/dL (0.55-1.3)
[2024-05-06 17:15] LABS: BILIRUBIN,TOTAL 0.3 mg/dL (0.2-1); TOT PROT 7.5 g/dl (6.4-8.2)
[2024-05-06] MEDS: INSULIN ASPART SLIDING SCALE (NOVOLOG) 1 VIAL SQ SCH (21:43)
[2024-05-06] MEDS: ATORVASTATIN CA 40 MG TABLET (FP) PO SCH (21:44)
[2024-05-06] MEDS: ACETAMINOPHEN 325 MG TABLET (FP) PO ONE (21:56)
[2024-05-07 00:08] VITALS: BMI 33.2
[2024-05-07] MEDS ORDERED: LIDOCAINE HCL 1%, 10 MG/ML (20ML VIAL) ONE (07:08)
[2024-05-07] MEDS ORDERED: DEXAMETHASONE SOD PHOSPHATE 4 MG/1 ML VIAL ONE (07:08)
[2024-05-07] MEDS ORDERED: BUPIVACAINE HCL/PF 0.5% (5MG/ML) 10 ML VIAL ONE (07:08)
[2024-05-07] MEDS ORDERED: ONDANSETRON 4 MG/2 ML VIAL IVPUSH PRN (07:22)
[2024-05-07] MEDS ORDERED: MIDAZOLAM HCL 2 MG/2 ML SINGLE DOSE VIAL ONE (07:26)
[2024-05-07] MEDS ORDERED: PROPOFOL 20 ML ONE (07:26)
[2024-05-07] MEDS ORDERED: FENTANYL CITRATE/PF 50 MCG/ML VIAL ONE (07:26)
[2024-05-07] MEDS ORDERED: LACTATED RINGERS SOLUTION 1,000 ML IV SCH (07:30)
[2024-05-07] MEDS: LIDOCAINE HCL 1%, 10 MG/ML (20ML VIAL) NR ONE (07:45)
[2024-05-07 08:44] LABS: BASO % 0.4 % (0-2.0); HEMATOCRIT 35.7 % (32.4-45.2); LYMPH % 23.6 % (8-40); MCH 29.2 pg (25.7-33.7); MCHC 33.5 g/dl (32.0-36.0); MEAN CELL VOLUME 87.1 fl (80-96); MEAN PLT VOLUME 9.8 fl (7.5-11.1); MONO % 10.5 % (3.8-10.2); NEUT % 58.5 % (42.8-82.8); PLATELET COUNT 205 10^3/uL (134-434); RDW 14.1 % (11.6-15.6); WHITE BLOOD COUNT 4.7 K/mm3 (4.0-10.0)
[2024-05-07 08:54] LABS: BLOOD UREA NITROGEN 30.8 mg/dL (7-18)
[2024-05-07 08:55] LABS: ALBUMIN 3.3 g/dl (3.4-5.0); MAGNESIUM 2.3 mg/dL (1.8-2.4)
[2024-05-07 08:56] LABS: POTASSIUM 4.2 mmol/L (3.5-5.1)
[2024-05-07 08:58] VITALS: RESP 18
[2024-05-07 08:58] LABS: CREATININE 1.1 mg/dL (0.55-1.3); PHOSPHOROUS 4.1 mg/dL (2.5-4.9)
[2024-05-07 08:59] LABS: BILIRUBIN,TOTAL 0.5 mg/dL (0.2-1); TOT PROT 7.2 g/dl (6.4-8.2)
[2024-05-07] MEDS ORDERED: amLODIPine BESYLATE 10 MG TABLET (FP) PO SCH (10:00)
[2024-05-07] MEDS ORDERED: LOSARTAN POTASSIUM 50 MG TABLET PO SCH (10:00)
[2024-05-07] MEDS ORDERED: ISOSORBIDE MONONITRATE 30 MG TAB.SR.24H (FP) PO SCH (10:00)
[2024-05-07] MEDS: ISOSORBIDE MONONITRATE 30 MG TAB.SR.24H (FP) PO SCH (10:42)
[2024-05-07] MEDS: LOSARTAN POTASSIUM 50 MG TABLET PO SCH (10:42)
[2024-05-07] MEDS: amLODIPine BESYLATE 10 MG TABLET (FP) PO SCH (10:42)
[2024-05-07] MEDS: INSULIN ASPART SLIDING SCALE (NOVOLOG) 1 VIAL SQ SCH (10:52)
[2024-05-07] MEDS: ACETAMINOPHEN 325 MG TABLET (FP) PO PRN (17:19)
[2024-05-07] MEDS: CEFTRIAXONE 1 GM in DEXTROSE 5%-WATER - 50 ML IVPB SCH (21:09)
[2024-05-07] MEDS: ATORVASTATIN CA 40 MG TABLET (FP) PO SCH (21:16)
[2024-05-09] MEDS: CEFTRIAXONE 2 GM in DEXTROSE 5%-WATER 100 ML IVPB SCH (09:12)
[2024-05-10] MEDS ORDERED: INSULIN ASPART SLIDING SCALE (NOVOLOG) 1 VIAL SQ SCH (16:42)
[2024-05-10] MEDS: INSULIN ASPART SLIDING SCALE (NOVOLOG) 1 VIAL SQ SCH (16:56)
[2024-05-10] MEDS: INSULIN (LEVEMIR) 100 UNITS/ML UNITS SQ SCH (21:30)
[2024-05-10] MEDS ORDERED: INSULIN (LEVEMIR) 100 UNITS/ML UNITS SQ SCH (22:00)
[2024-05-12] MEDS: DAPTOMYCIN 800 MG in SODIUM CHLORIDE 50 ML IVPB SCH (14:32)
[2024-05-13 04:41] VITALS: PULSE 66
[2024-05-13 15:24] VITALS: BP 138/54; TEMP 97.9
== END 2024-05-13 17:37 | disposition home health service (06) | DRG 988 ==
LOC: JER 14:31 → JOR 14:31 → JERBED 15:42 → J6S 19:36
PROVIDERS: ADMIT Internal Medicine; ATTEND Internal Medicine
PROC: 0Q9Q3ZX Drainage of Right Toe Phalanx, Percutaneous Approach, Diagnostic (ICD-10-PCS; principal; 2024-05-07 07:30)
PROC: 02HV33Z Insertion of Infusion Device into Superior Vena Cava, Percutaneous Approach (ICD-10-PCS; 2024-05-13)
PROC: B548ZZA Ultrasonography of Superior Vena Cava, Guidance (ICD-10-PCS; 2024-05-13)
DX: E11.69 Type 2 diabetes mellitus with other specified complication (principal); L03.115 Cellulitis of right lower limb; M86.8X7 Other osteomyelitis, ankle and foot; E11.51 Type 2 diabetes mellitus with diabetic peripheral angiopathy without gangrene; E11.40 Type 2 diabetes mellitus with diabetic neuropathy, unspecified; I25.10 Atherosclerotic heart disease of native coronary artery without angina pectoris; E11.42 Type 2 diabetes mellitus with diabetic polyneuropathy; E11.65 Type 2 diabetes mellitus with hyperglycemia; E78.5 Hyperlipidemia, unspecified; Z79.4 Long term (current) use of insulin
CPT/HCPCS: 0241U-QW; 36415; 36569; 73630-TC-RT-FY; 80053; 82550; 82962; 83036; 83735; 84100; 85025; 85610; 85730; 86850; 86900; 86901; 87070; 87075; 87186; 87205; 93005; 93010; 94760; 99285-25; G0463-25; J0878

== ENCOUNTER 2024-05-29 15:01 | Inpatient (IN) | payer OTHER ==
[2024-05-29] MEDS: ACETAMINOPHEN 1000 MG/100 ML BAG IVPB ONE (16:24)
[2024-05-29] MEDS: ACETAMINOPHEN 500 MG TABLET (FP) PO ONE (16:25)
[2024-05-29] MEDS ORDERED: ACETAMINOPHEN INJECTION 100 ML IVPB ONE (16:26)
[2024-05-29 16:43] LABS: BASO % 0.4 % (0-2.0); EOS % 4.2 % (0-4.5); HEMATOCRIT 25.5 % (32.4-45.2); HEMOGLOBIN 8.5 GM/dL (10.7-15.3); LYMPH % 25.9 % (8-40); MCH 28.8 pg (25.7-33.7); MCHC 33.3 g/dl (32.0-36.0); MEAN CELL VOLUME 86.5 fl (80-96); MEAN PLT VOLUME 9.2 fl (7.5-11.1); MONO % 7.7 % (3.8-10.2); NEUT % 61.8 % (42.8-82.8); PLATELET COUNT 162 10^3/uL (134-434); RBC 2.94 M/mm3 (3.60-5.2); RDW 14.8 % (11.6-15.6); WHITE BLOOD COUNT 5.8 K/mm3 (4.0-10.0)
[2024-05-29 16:49] LABS: INR 1.12 (0.83-1.09); PROTHROMBIN TIME (PATIENT) 12.6 SEC (9.7-13.0)
[2024-05-29 16:51] LABS: ACTIVATED PTT 38.7 SECONDS (25.2-36.5)
[2024-05-29 17:21] LABS: POTASSIUM 4.5 mmol/L (3.5-5.1)
[2024-05-29 17:24] LABS: ALBUMIN 3.2 g/dl (3.4-5.0); BLOOD UREA NITROGEN 28.5 mg/dL (7-18)
[2024-05-29 17:27] LABS: CREATININE 1.1 mg/dL (0.55-1.3)
[2024-05-29 17:29] LABS: BILIRUBIN,TOTAL 0.3 mg/dL (0.2-1); TOT PROT 7.4 g/dl (6.4-8.2)
[2024-05-30 02:31] VITALS: BMI 31.8
[2024-05-30] MEDS ORDERED: glipiZIDE-XL 10 MG TAB.ER.24 (FP) PO SCH ×3 (07:00→10:00)
[2024-05-30] MEDS: INSULIN ASPART SLIDING SCALE (NOVOLOG) 1 VIAL SQ SCH (07:14)
[2024-05-30] MEDS: glipiZIDE-XL 10 MG TAB.ER.24 (FP) PO SCH (08:49)
[2024-05-30] MEDS: FUROSEMIDE 20 MG TABLET (FP) PO SCH (09:24)
[2024-05-30] MEDS: EZETIMIBE 10 MG TABLET (FP) PO SCH (09:24)
[2024-05-30] MEDS: amLODIPine BESYLATE 5 MG TABLET (FP) PO SCH (09:24)
[2024-05-30] MEDS: PANTOPRAZOLE 40 MG TABLET PO SCH (09:24)
[2024-05-30] MEDS: ISOSORBIDE MONONITRATE 30 MG TAB.SR.24H (FP) PO SCH (09:24)
[2024-05-30] MEDS: LOSARTAN POTASSIUM 50 MG TABLET PO SCH (09:24)
[2024-05-30 09:53] LABS: BASO % 0.5 % (0-2.0); EOS % 4.5 % (0-4.5); HEMOGLOBIN 11.7 GM/dL (10.7-15.3); LYMPH % 20.5 % (8-40); MCH 28.9 pg (25.7-33.7); MCHC 33.5 g/dl (32.0-36.0); MEAN CELL VOLUME 86.2 fl (80-96); MEAN PLT VOLUME 9.1 fl (7.5-11.1); MONO % 6.2 % (3.8-10.2); NEUT % 68.3 % (42.8-82.8); PLATELET COUNT 218 10^3/uL (134-434); RBC 4.06 M/mm3 (3.60-5.2); RDW 14.6 % (11.6-15.6); WHITE BLOOD COUNT 5.3 K/mm3 (4.0-10.0)
[2024-05-30] MEDS ORDERED: PATIENT'S OWN MEDICATION (NON-FORMULARY) (Dapagliflozin Propanediol 10 MG Tablet) PO SCH (10:00)
[2024-05-30 10:13] LABS: POTASSIUM 4.5 mmol/L (3.5-5.1)
[2024-05-30 10:15] LABS: CALCIUM 8.7 mg/dL (8.5-10.1)
[2024-05-30 10:16] LABS: BLOOD UREA NITROGEN 25.1 mg/dL (7-18)
[2024-05-30 10:19] LABS: CREATININE 1.2 mg/dL (0.55-1.3)
[2024-05-30] MEDS: COLLAGENASE CLOSTRIDIUM HIST. 30 GRAMS TUBE TP SCH (12:42)
[2024-05-30] MEDS: AMPICILLIN NA/SULBACTAM NA 3 GM in SODIUM CHLORIDE 100 ML IVPB SCH (15:14)
[2024-05-30] MEDS: ATORVASTATIN CA 40 MG TABLET (FP) PO SCH (21:28)
[2024-05-31] MEDS ORDERED: AMPICILLIN NA/SULBACTAM NA 3 GM VIAL ONE (09:31)
[2024-05-31 18:09] LABS: INR 1.01 (0.83-1.09); PROTHROMBIN TIME (PATIENT) 11.6 SEC (9.7-13.0)
[2024-05-31] MEDS: INSULIN (LEVEMIR) 100 UNITS/ML UNITS SQ SCH (22:42)
[2024-06-01 08:31] LABS: BASO % 0.5 % (0-2.0); EOS % 4.4 % (0-4.5); HEMATOCRIT 36.6 % (32.4-45.2); HEMOGLOBIN 12.6 GM/dL (10.7-15.3); LYMPH % 25.9 % (8-40); MCH 29.6 pg (25.7-33.7); MCHC 34.5 g/dl (32.0-36.0); MEAN CELL VOLUME 85.8 fl (80-96); MEAN PLT VOLUME 9.2 fl (7.5-11.1); MONO % 5.3 % (3.8-10.2); NEUT % 63.9 % (42.8-82.8); PLATELET COUNT 219 10^3/uL (134-434); RBC 4.26 M/mm3 (3.60-5.2); RDW 14.5 % (11.6-15.6); WHITE BLOOD COUNT 5.8 K/mm3 (4.0-10.0)
[2024-06-01 08:52] LABS: POTASSIUM 4.3 mmol/L (3.5-5.1)
[2024-06-01 08:57] LABS: ALBUMIN 3.3 g/dl (3.4-5.0); CALCIUM 8.5 mg/dL (8.5-10.1)
[2024-06-01 09:00] LABS: CREATININE 1.2 mg/dL (0.55-1.3)
[2024-06-01 09:02] LABS: BILIRUBIN,TOTAL 0.5 mg/dL (0.2-1); TOT PROT 7.7 g/dl (6.4-8.2)
[2024-06-03] MEDS ORDERED: ONDANSETRON 4 MG/2 ML VIAL IVPUSH PRN ×2 (07:25→08:50)
[2024-06-03] MEDS ORDERED: PROMETHAZINE HCL 25 MG/1 ML VIAL IVPB PRN ×2 (07:25→08:50)
[2024-06-03] MEDS ORDERED: BUPIVACAINE HCL/PF 0.5% (5MG/ML) 10 ML VIAL ONE (07:28)
[2024-06-03] MEDS ORDERED: GENTAMICIN SO4 80 MG/2 ML VIAL ONE (07:28)
[2024-06-03] MEDS ORDERED: LIDOCAINE HCL 1%, 10 MG/ML (20ML VIAL) ONE (07:28)
[2024-06-03] MEDS ORDERED: LACTATED RINGERS SOLUTION 1,000 ML IV SCH ×2 (07:30→08:50)
[2024-06-03] MEDS ORDERED: MIDAZOLAM HCL 2 MG/2 ML SINGLE DOSE VIAL ONE (07:34)
[2024-06-03] MEDS ORDERED: PROPOFOL 20 ML ONE (07:34)
[2024-06-03] MEDS ORDERED: LIDOCAINE HCL/PF 2% SDV 5ML VIAL ONE (07:35)
[2024-06-03] MEDS ORDERED: ceFAZolin SODIUM 1 GM VIAL ONE (07:36)
[2024-06-03] MEDS: LIDOCAINE HCL 1%, 10 MG/ML (50 mL VIAL) INF ONE (07:49)
[2024-06-03] MEDS: BUPIVACAINE HCL/PF 0.5% (5 MG/ML) 30 ML VIAL IJ ONE (07:49)
[2024-06-03] MEDS ORDERED: METOPROLOL TARTRATE 5 MG/5 ML VIAL ONE (08:25)
[2024-06-03 09:51] VITALS: RESP 18
[2024-06-03] MEDS ORDERED: PATIENT'S OWN MEDICATION (NON-FORMULARY) (Dapagliflozin Propanediol 10 MG) PO SCH (10:00)
[2024-06-03] MEDS: AMPICILLIN NA/SULBACTAM NA 3 GM in SODIUM CHLORIDE 100 ML IVPB SCH (10:29)
[2024-06-03] MEDS: amLODIPine BESYLATE 5 MG TABLET (FP) PO SCH (10:29)
[2024-06-03] MEDS: ISOSORBIDE MONONITRATE 30 MG TAB.SR.24H (FP) PO SCH (10:29)
[2024-06-03] MEDS: FUROSEMIDE 20 MG TABLET (FP) PO SCH (10:30)
[2024-06-03] MEDS: EZETIMIBE 10 MG TABLET (FP) PO SCH (10:30)
[2024-06-03] MEDS: PANTOPRAZOLE 40 MG TABLET PO SCH (10:30)
[2024-06-03] MEDS: LOSARTAN POTASSIUM 50 MG TABLET PO SCH (10:30)
[2024-06-03] MEDS: COLLAGENASE CLOSTRIDIUM HIST. 30 GRAMS TUBE TP SCH (10:47)
[2024-06-03] MEDS: INSULIN ASPART SLIDING SCALE (NOVOLOG) 1 VIAL SQ SCH (11:36)
[2024-06-03] MEDS: glipiZIDE-XL 10 MG TAB.ER.24 (FP) PO SCH (16:27)
[2024-06-03] MEDS: INSULIN (LEVEMIR) 100 UNITS/ML UNITS SQ SCH (21:12)
[2024-06-03] MEDS: ATORVASTATIN CA 40 MG TABLET (FP) PO SCH (21:12)
[2024-06-03] MEDS: ACETAMINOPHEN 325 MG TABLET (FP) PO PRN (21:45)
[2024-06-03] MEDS ORDERED: INSULIN (LEVEMIR) 100 UNITS/ML UNITS SQ SCH (22:00)
[2024-06-04] MEDS: AMOX TR/POT CLAV 500MG/125MG TABLETS (FP) PO SCH (16:57)
[2024-06-05 08:47] LABS: HEMATOCRIT 31.7 % (32.4-45.2); HEMOGLOBIN 10.9 GM/dL (10.7-15.3); MCH 29.3 pg (25.7-33.7); MCHC 34.5 g/dl (32.0-36.0); MEAN PLT VOLUME 9.7 fl (7.5-11.1); PLATELET COUNT 162 10^3/uL (134-434); RBC 3.72 M/mm3 (3.60-5.2); RDW 14.4 % (11.6-15.6); WHITE BLOOD COUNT 7.1 K/mm3 (4.0-10.0)
[2024-06-05 09:10] LABS: ALBUMIN 2.8 g/dl (3.4-5.0); BLOOD UREA NITROGEN 37.3 mg/dL (7-18)
[2024-06-05 09:15] LABS: BILIRUBIN,TOTAL 0.4 mg/dL (0.2-1); TOT PROT 6.6 g/dl (6.4-8.2)
[2024-06-05 16:43] VITALS: BP 138/61; PULSE 73; TEMP 97.8
== END 2024-06-05 17:02 | disposition home health service (06) | DRG 617 ==
LOC: JER 15:01 → JERBED 20:13 → J6S 22:39
PROVIDERS: ADMIT Internal Medicine; ATTEND Family Medicine
PROC: 0Y6P0Z1 Detachment at Right 1st Toe, High, Open Approach (ICD-10-PCS; principal; 2024-06-03 07:30)
DX: E11.69 Type 2 diabetes mellitus with other specified complication (principal); M86.8X7 Other osteomyelitis, ankle and foot; E11.51 Type 2 diabetes mellitus with diabetic peripheral angiopathy without gangrene; I11.9 Hypertensive heart disease without heart failure; E11.610 Type 2 diabetes mellitus with diabetic neuropathic arthropathy; E11.628 Type 2 diabetes mellitus with other skin complications; E66.9 Obesity, unspecified; E78.5 Hyperlipidemia, unspecified; I25.10 Atherosclerotic heart disease of native coronary artery without angina pectoris; S91.101A Unspecified open wound of right great toe without damage to nail, initial encounter; E11.42 Type 2 diabetes mellitus with diabetic polyneuropathy; Z68.31 Body mass index [BMI] 31.0-31.9, adult; Z95.5 Presence of coronary angioplasty implant and graft; X58.XXXA Exposure to other specified factors, initial encounter; Y93.9 Activity, unspecified; Y92.89 Other specified places as the place of occurrence of the external cause; Y99.9 Unspecified external cause status
CPT/HCPCS: 0241U-QW; 36415; 73630-TC-RT-FY; 75635-TC; 80048; 80053; 80061; 82607; 82728; 82962; 83036; 83540; 83550; 85025; 85027; 85610; 85651; 85730; 86140; 86850; 86900; 86901; 87040; 87070; 87075; 87186; 87205; 88305-TC; 88311-TC; 93005; 93010; 93970-TC; 94760; 97597; 99285-25; J0131; Q9967

== ENCOUNTER 2024-08-19 09:57 | Inpatient (IN) | payer OTHER ==
[2024-08-19] MEDS ORDERED: CEFEPIME HCL 1 GM VIAL (RESTRICTED TO ID) IVPB ONE (10:44)
[2024-08-19 11:42] LABS: BASO % 0.3 % (0-2.0); EOS % 2.2 % (0-4.5); HEMATOCRIT 33.5 % (32.4-45.2); HEMOGLOBIN 11.2 GM/dL (10.7-15.3); LYMPH % 15.3 % (8-40); MCH 29.4 pg (25.7-33.7); MCHC 33.5 g/dl (32.0-36.0); MEAN CELL VOLUME 87.9 fl (80-96); MEAN PLT VOLUME 9.4 fl (7.5-11.1); NEUT % 75.2 % (42.8-82.8); PLATELET COUNT 211 10^3/uL (134-434); RBC 3.81 M/mm3 (3.60-5.2); RDW 14.5 % (11.6-15.6); WHITE BLOOD COUNT 9.1 K/mm3 (4.0-10.0)
[2024-08-19 11:46] LABS: POTASSIUM 4.1 mmol/L (3.5-5.1)
[2024-08-19 11:48] LABS: CALCIUM 8.7 mg/dL (8.5-10.1)
[2024-08-19 11:49] LABS: ALBUMIN 3.3 g/dl (3.4-5.0); BLOOD UREA NITROGEN 31.5 mg/dL (7-18)
[2024-08-19 11:52] LABS: CREATININE 1.3 mg/dL (0.55-1.3)
[2024-08-19 11:53] LABS: BILIRUBIN,TOTAL 0.4 mg/dL (0.2-1); TOT PROT 7.4 g/dl (6.4-8.2)
[2024-08-19] MEDS: LINEZOLID 600 MG PREMIX BAG 600 MG in PREMIX 300 IVPB ONE (12:00)
[2024-08-19 12:52] LABS: HIV INTERPRETATION NEGATIVE (NEGATIVE)
[2024-08-19] MEDS ORDERED: CEFEPIME 1 GM/100 ML BAG IVPB ONE (13:03)
[2024-08-19] MEDS: CEFEPIME 1 GM in DEXTROSE 5%-WATER - 100 ML IVPB ONE (13:37)
[2024-08-19 13:38] LABS: INR 1.15 (0.83-1.09); PROTHROMBIN TIME (PATIENT) 13.2 SEC (9.7-13.0)
[2024-08-19 13:41] LABS: ACTIVATED PTT 40.7 SECONDS (25.2-36.5)
[2024-08-19] MEDS: diphenhydrAMINE HCL 25 MG CAPSULE (FP) PO ONE (17:03)
[2024-08-19] MEDS: INSULIN (NOVOLOG) ASPART 100 UNITS/ML 10ML VIAL SQ SCH (17:03)
[2024-08-19] MEDS ORDERED: diphenhydrAMINE HCL 25 MG CAPSULE (FP) PO ONE (17:07)
[2024-08-19] MEDS ORDERED: LORATADINE 10 MG TABLET ONE (21:25)
[2024-08-19] MEDS ORDERED: ATORVASTATIN CA 40 MG TABLET (FP) ONE (21:25)
[2024-08-19] MEDS ORDERED: INSULIN ASPART SLIDING SCALE (NOVOLOG) 1 VIAL SQ ONE (21:26)
[2024-08-19] MEDS: LORATADINE 10 MG TABLET PO SCH (21:27)
[2024-08-19] MEDS: ATORVASTATIN CA 40 MG TABLET (FP) PO SCH (21:27)
[2024-08-19] MEDS: RIVAROXABAN 2.5 MG TABLET PO SCH (21:32)
[2024-08-20] MEDS: ACETAMINOPHEN 500 MG TABLET (FP) PO ONE ×2 (01:41→23:02)
[2024-08-20 08:36] VITALS: BMI 33.0
[2024-08-20] MEDS ORDERED: PATIENT'S OWN MEDICATION (NON-FORMULARY) (Plecanatide [Trulance] 3 MG Tablet) PO SCH (10:00)
[2024-08-20 10:04] LABS: BASO % 0.5 % (0-2.0); EOS % 2.8 % (0-4.5); HEMATOCRIT 34.7 % (32.4-45.2); HEMOGLOBIN 11.6 GM/dL (10.7-15.3); LYMPH % 17.7 % (8-40); MCH 29.5 pg (25.7-33.7); MCHC 33.5 g/dl (32.0-36.0); MEAN CELL VOLUME 88.2 fl (80-96); MEAN PLT VOLUME 9.3 fl (7.5-11.1); MONO % 6.1 % (3.8-10.2); NEUT % 72.9 % (42.8-82.8); PLATELET COUNT 203 10^3/uL (134-434); RBC 3.93 M/mm3 (3.60-5.2); RDW 14.1 % (11.6-15.6); WHITE BLOOD COUNT 7.6 K/mm3 (4.0-10.0)
[2024-08-20] MEDS: ASPIRIN 81 MG CHEWABLE TABLETS PO SCH (10:17)
[2024-08-20] MEDS: ISOSORBIDE MONONITRATE 30 MG TAB.SR.24H (FP) PO SCH (10:17)
[2024-08-20] MEDS: EZETIMIBE 10 MG TABLET (FP) PO SCH (10:17)
[2024-08-20] MEDS: LOSARTAN POTASSIUM 50 MG TABLET PO SCH (10:17)
[2024-08-20] MEDS: OMEGA-3 ACID ETHYL ESTERS (FATTY-ACIDS) 1 GM CAPSULE (FP) PO SCH (10:17)
[2024-08-20] MEDS: PANTOPRAZOLE 40 MG TABLET PO SCH (10:18)
[2024-08-20] MEDS: amLODIPine BESYLATE 10 MG TABLET (FP) PO SCH (10:18)
[2024-08-20 10:37] LABS: POTASSIUM 4.6 mmol/L (3.5-5.1)
[2024-08-20 10:43] LABS: CALCIUM 8.7 mg/dL (8.5-10.1)
[2024-08-20 10:44] LABS: ALBUMIN 3.1 g/dl (3.4-5.0)
[2024-08-20 10:47] LABS: CREATININE 1.1 mg/dL (0.55-1.3)
[2024-08-20 10:48] LABS: BILIRUBIN,TOTAL 0.5 mg/dL (0.2-1)
[2024-08-20] MEDS: COLLAGENASE CLOSTRIDIUM HIST. 30 GRAMS TUBE TP SCH (12:42)
[2024-08-20] MEDS: PIPERACILLIN/TAZOB 4.5 GM 4.5 GM in DEXTROSE 5%-WATER 100 ML IVPB SCH (15:21)
[2024-08-21] MEDS ORDERED: DOCUSATE SODIUM 100 MG CAPSULE (FP) PO PRN (07:17)
[2024-08-21] MEDS: MELATONIN 5 MG TABLETS PO PRN (21:38)
[2024-08-21] MEDS: ACETAMINOPHEN 325 MG TABLET (FP) PO PRN (22:27)
[2024-08-23] MEDS: INSULIN (LEVEMIR) 100 UNITS/ML UNITS SQ SCH (21:38)
[2024-08-23] MEDS: INSULIN ASPART SLIDING SCALE (NOVOLOG) 1 VIAL SQ SCH (21:42)
[2024-08-25 07:52] VITALS: RESP 18; TEMP 97.8
[2024-08-25 09:04] VITALS: BP 132/54; PULSE 68
[2024-08-25 11:16] LABS: HEMATOCRIT 32.4 % (32.4-45.2); HEMOGLOBIN 10.7 GM/dL (10.7-15.3); MCH 29.3 pg (25.7-33.7); MCHC 32.9 g/dl (32.0-36.0); MEAN CELL VOLUME 88.9 fl (80-96); MEAN PLT VOLUME 9.4 fl (7.5-11.1); PLATELET COUNT 210 10^3/uL (134-434); RBC 3.65 M/mm3 (3.60-5.2); RDW 13.7 % (11.6-15.6); WHITE BLOOD COUNT 6.4 K/mm3 (4.0-10.0)
[2024-08-25 11:32] LABS: POTASSIUM 4.3 mmol/L (3.5-5.1)
[2024-08-25 11:40] LABS: CALCIUM 8.4 mg/dL (8.5-10.1)
[2024-08-25 11:41] LABS: ALBUMIN 2.8 g/dl (3.4-5.0); BLOOD UREA NITROGEN 28.9 mg/dL (7-18)
[2024-08-25 11:44] LABS: CREATININE 1.4 mg/dL (0.55-1.3)
[2024-08-25 11:46] LABS: BILIRUBIN,TOTAL 0.4 mg/dL (0.2-1); TOT PROT 6.8 g/dl (6.4-8.2)
== END 2024-08-25 14:02 | disposition home or self-care (01) | DRG 603 ==
LOC: JER 09:57 → JERBED 14:15 → J6S 21:51
PROVIDERS: ADMIT Family Medicine; ATTEND Family Medicine
DX: L03.116 Cellulitis of left lower limb (principal); L97.929 Non-pressure chronic ulcer of unspecified part of left lower leg with unspecified severity; E11.51 Type 2 diabetes mellitus with diabetic peripheral angiopathy without gangrene; E11.621 Type 2 diabetes mellitus with foot ulcer; L97.529 Non-pressure chronic ulcer of other part of left foot with unspecified severity; E11.65 Type 2 diabetes mellitus with hyperglycemia; I25.10 Atherosclerotic heart disease of native coronary artery without angina pectoris; E11.42 Type 2 diabetes mellitus with diabetic polyneuropathy; Z95.5 Presence of coronary angioplasty implant and graft
CPT/HCPCS: 36415; 73610-TC-LT-FY; 73630-TC-LT; 73718-TC-LT; 75635-TC; 80053; 82962; 83036; 84443; 85025; 85027; 85610; 85730; 86140; 86803; 86850; 86900; 86901; 87040; 87389; 88305-TC; 93005; 93010; 97597; 99285-25; A6196; Q9967

== ENCOUNTER 2025-01-17 05:18 | Inpatient (IN) | payer OTHER ==
[2025-01-17] MEDS ORDERED: methylPREDNISolone NA SUCC 125 MG/2 ML VIAL ONE (06:17)
[2025-01-17] MEDS ORDERED: ALBUTEROL SO4 2.5/IPRATROPIUM 0.5 INH SOL 3 ML VIAL.NEB. NEB ONE (06:17)
[2025-01-17] MEDS: methylPREDNISolone NA SUCC 125 MG/2 ML VIAL IVPB ONE (06:47)
[2025-01-17] MEDS: ALBUTEROL SO4 2.5/IPRATROPIUM 0.5 INH SOL 3 ML VIAL.NEB. NEB ONE (06:47)
[2025-01-17 07:09] LABS: INR 1.08 (0.83-1.09); PROTHROMBIN TIME (PATIENT) 11.9 SEC (9.7-13.0)
[2025-01-17 07:10] LABS: ACTIVATED PTT 35.8 SECONDS (25.2-36.5)
[2025-01-17] MEDS: FUROSEMIDE 40 MG/4 ML INJECTABLE VIAL IVPUSH ONE (07:10)
[2025-01-17 07:12] LABS: BASO % 0.3 % (0-2.0); EOS % 2.1 % (0-4.5); HEMATOCRIT 31.6 % (32.4-45.2); HEMOGLOBIN 10.3 GM/dL (10.7-15.3); LYMPH % 15.8 % (8-40); MCH 28.1 pg (25.7-33.7); MCHC 32.6 g/dl (32.0-36.0); MEAN CELL VOLUME 86.2 fl (80-96); MEAN PLT VOLUME 9.5 fl (7.5-11.1); MONO % 5.6 % (3.8-10.2); NEUT % 76.2 % (42.8-82.8); PLATELET COUNT 218 10^3/uL (134-434); RBC 3.67 M/mm3 (3.60-5.2); RDW 15.4 % (11.6-15.6); WHITE BLOOD COUNT 9.5 K/mm3 (4.0-10.0)
[2025-01-17] MEDS: CEFTRIAXONE 1 GM in DEXTROSE 5%-WATER - 100 ML IVPB ONE (07:15)
[2025-01-17 07:21] LABS: CALCIUM 8.5 mg/dL (8.5-10.1)
[2025-01-17 07:22] LABS: ALBUMIN 3.4 g/dl (3.4-5.0); BLOOD UREA NITROGEN 36.9 mg/dL (7-18); MAGNESIUM 1.9 mg/dL (1.8-2.4); POTASSIUM 4.4 mmol/L (3.5-5.1)
[2025-01-17] MEDS ORDERED: AZITHROMYCIN IVPB 500 MG/250 ML BAG IVPB ONE ×2 (07:22→07:30)
[2025-01-17] MEDS ORDERED: FUROSEMIDE 40 MG/4 ML INJECTABLE VIAL ONE (07:22)
[2025-01-17] MEDS ORDERED: CEFTRIAXONE 1 G/50 ML PREMIX 50 ML IVPB ONE ×2 (07:22→07:30)
[2025-01-17 07:25] LABS: CREATININE 1.1 mg/dL (0.55-1.3)
[2025-01-17 07:27] LABS: BILIRUBIN,TOTAL 0.3 mg/dL (0.2-1); TOT PROT 7.4 g/dl (6.4-8.2)
[2025-01-17] MEDS: AZITHROMYCIN IVPB 500 MG in DEXTROSE 5%-WATER - 250 ML IVPB ONE (07:44)
[2025-01-17] MEDS ORDERED: ASPIRIN 81 MG CHEWABLE TABLETS ONE (07:51)
[2025-01-17] MEDS: ASPIRIN 81 MG CHEWABLE TABLETS PO ONE (07:53)
[2025-01-17] MEDS ORDERED: HEPARIN NA (PORCINE) 5,000 UNITS/ML 1ML VIAL ONE ×3 (08:45→22:15)
[2025-01-17] MEDS: HEPARIN NA (PORCINE) 5,000 UNITS/ML 1ML VIAL IVPUSH ONE (08:51)
[2025-01-17] MEDS ORDERED: HEPARIN INFUSION - 25,000 UNITS/500 ML INFUS.BAG IVPB ONE (09:15)
[2025-01-17] MEDS: HEPARIN INFUSION - 25,000 UNITS/500 ML INFUS.BAG IVPB SCH (09:23)
[2025-01-17 09:27] LABS: N-TERMINAL BNP 3114.8 pg/ml (5-125)
[2025-01-17 09:49] LABS: INR 1.19 (0.83-1.09); PROTHROMBIN TIME (PATIENT) 13.1 SEC (9.7-13.0)
[2025-01-17 10:14] LABS: ACTIVATED PTT 189.1 SECONDS (25.2-36.5)
[2025-01-17] MEDS: HEPARIN NA (PORCINE) 5,000 UNITS/ML 1ML VIAL IVPUSH PRN ×2 (16:08→22:22)
[2025-01-17] MEDS ORDERED: DOCUSATE SODIUM 100 MG CAPSULE (FP) PO PRN (20:13)
[2025-01-17] MEDS ORDERED: ACETAMINOPHEN 325 MG TABLET (FP) PO PRN (20:13)
[2025-01-18 07:31] LABS: BASO % 0.1 % (0-2.0); HEMATOCRIT 30.2 % (32.4-45.2); HEMOGLOBIN 9.9 GM/dL (10.7-15.3); LYMPH % 7.7 % (8-40); MCH 28.4 pg (25.7-33.7); MCHC 32.8 g/dl (32.0-36.0); MEAN CELL VOLUME 86.7 fl (80-96); MEAN PLT VOLUME 9.6 fl (7.5-11.1); MONO % 6.8 % (3.8-10.2); NEUT % 85.4 % (42.8-82.8); PLATELET COUNT 230 10^3/uL (134-434); RBC 3.49 M/mm3 (3.60-5.2); RDW 16.1 % (11.6-15.6); WHITE BLOOD COUNT 10.5 K/mm3 (4.0-10.0)
[2025-01-18 08:37] LABS: ANION GAP 12 mmol/L (4-13); BLOOD UREA NITROGEN 44.1 mg/dL (7-18); CALCIUM 8.3 mg/dL (8.5-10.1); CHLORIDE 98 mmol/L (98-107); CHOLESTEROL 66 mg/dL (50-200); CO2 24 mmol/L (21-32); CREATININE 1.5 mg/dL (0.55-1.3); GLUCOSE,RANDOM 596 mg/dL (74-106); HDL CHOLESTEROL 52 mg/dL (40-60); LDL CHOLESTEROL (ONLY SJRH) 8 mg/dL (5-100); POTASSIUM 4.6 mmol/L (3.5-5.1); SODIUM 134 mmol/L (136-145)
[2025-01-18] MEDS: FUROSEMIDE 40 MG/4 ML INJECTABLE VIAL IVPUSH ONE ×2 (09:00→18:06)
[2025-01-18] MEDS: FLU VACCINE (FLULAVAL) PF 45 MCG/0.5 ML SYRINGE 2024-2025 IM ONE (10:00)
[2025-01-18] MEDS: PNEUMOC 20-VAL CONJ-DIP CRM/PF 0.5 ML SYRINGE IM ONE (10:15)
[2025-01-18] MEDS: PANTOPRAZOLE 40 MG TABLET PO SCH (10:28)
[2025-01-18] MEDS: LOSARTAN POTASSIUM 50 MG TABLET PO SCH (10:29)
[2025-01-18] MEDS: ISOSORBIDE MONONITRATE 30 MG TAB.SR.24H (FP) PO SCH (10:29)
[2025-01-18] MEDS: amLODIPine BESYLATE 5 MG TABLET (FP) PO SCH (10:29)
[2025-01-18] MEDS: ASPIRIN 81 MG CHEWABLE TABLETS PO SCH (10:29)
[2025-01-18] MEDS: CEFTRIAXONE 1 G/50 ML PREMIX 50 ML IVPB SCH (10:33)
[2025-01-18] MEDS: AZITHROMYCIN IVPB 500 MG/250 ML BAG IVPB SCH (10:38)
[2025-01-18] MEDS: INSULIN ASPART SLIDING SCALE (NOVOLOG) 1 VIAL SQ SCH (11:42)
[2025-01-18] MEDS: MUPIROCIN 2% TOPICAL OINTMENT 22 GM TUBE TP SCH (12:27)
[2025-01-18] MEDS ORDERED: SODIUM CHLORIDE NASAL SPRAY 44 ML BOTTLE NS PRN (13:03)
[2025-01-18] MEDS ORDERED: ALBUTEROL SO4 HFA INHALER IH PRN (13:04)
[2025-01-18] MEDS: COLLAGENASE CLOSTRIDIUM HIST. 30 GRAMS TUBE TP SCH (19:27)
[2025-01-18 20:24] LABS: ALBUMIN 3.3 g/dl (3.4-5.0); ANION GAP 13 mmol/L (4-13); BLOOD UREA NITROGEN 55.3 mg/dL (7-18); CALCIUM 8.2 mg/dL (8.5-10.1); CHLORIDE 96 mmol/L (98-107); CO2 22 mmol/L (21-32); CREATININE 1.9 mg/dL (0.55-1.3); GLUCOSE,RANDOM 452 mg/dL (74-106); POTASSIUM 4.5 mmol/L (3.5-5.1); SGPT/ALT 23 U/L (13-61); SODIUM 131 mmol/L (136-145)
[2025-01-18] MEDS ORDERED: SIMETHICONE 80 MG TAB.CHEW (FP) PO PRN (20:24)
[2025-01-18 20:35] LABS: ALK PHOS 103 U/L (45-117); TOT PROT 6.9 g/dl (6.4-8.2)
[2025-01-18 20:48] LABS: BILIRUBIN,TOTAL 0.3 mg/dL (0.2-1); SGOT/AST 37 U/L (15-37)
[2025-01-18] MEDS: ATORVASTATIN CA 40 MG TABLET (FP) PO SCH (21:48)
[2025-01-18] MEDS: INSULIN (LEVEMIR) 100 UNITS/ML UNITS SQ SCH (21:53)
[2025-01-18] MEDS ORDERED: INSULIN (LEVEMIR) 100 UNITS/ML UNITS SQ SCH (22:00)
[2025-01-18] MEDS: FLUTICASONE PROP 0.05% 16 GM NASAL SPRAY NS SCH (22:50)
[2025-01-19] MEDS: FUROSEMIDE 40 MG/4 ML INJECTABLE VIAL IVPUSH SCH (05:35)
[2025-01-19 07:22] LABS: BASO % 0.5 % (0-2.0); EOS % 1.2 % (0-4.5); HEMATOCRIT 29.3 % (32.4-45.2); LYMPH % 13.5 % (8-40); MCH 28.8 pg (25.7-33.7); MEAN CELL VOLUME 84.7 fl (80-96); MEAN PLT VOLUME 9.8 fl (7.5-11.1); MONO % 4.8 % (3.8-10.2); PLATELET COUNT 225 10^3/uL (134-434); RBC 3.47 M/mm3 (3.60-5.2); RDW 16.3 % (11.6-15.6); WHITE BLOOD COUNT 10.9 K/mm3 (4.0-10.0)
[2025-01-19 08:16] LABS: ALBUMIN 3.4 g/dl (3.4-5.0); BILIRUBIN,TOTAL 0.5 mg/dL (0.2-1)
[2025-01-19 08:17] LABS: BLOOD UREA NITROGEN 56.4 mg/dL (7-18)
[2025-01-19 08:18] LABS: CALCIUM 8.5 mg/dL (8.5-10.1); CREATININE 1.7 mg/dL (0.55-1.3)
[2025-01-19 08:19] LABS: TOT PROT 7.2 g/dl (6.4-8.2)
[2025-01-19] MEDS: DOXYCYCLINE HYCLATE 100 MG CAPSULE PO SCH (09:41)
[2025-01-19 12:51] LABS: IRON SERUM 47 ug/dL (50-175)
[2025-01-19 12:52] LABS: TOTAL IRON BINDING CAPACITY 307 ug/dL (250-450)
[2025-01-19 13:29] VITALS: BMI 33.7
[2025-01-20 06:27] VITALS: RESP 19
[2025-01-20 07:42] LABS: BASO % 0.4 % (0-2.0); EOS % 2.6 % (0-4.5); HEMATOCRIT 30.5 % (32.4-45.2); HEMOGLOBIN 10.1 GM/dL (10.7-15.3); LYMPH % 14.9 % (8-40); MCH 28.1 pg (25.7-33.7); MCHC 33.1 g/dl (32.0-36.0); MEAN CELL VOLUME 84.9 fl (80-96); MEAN PLT VOLUME 9.8 fl (7.5-11.1); MONO % 8.2 % (3.8-10.2); NEUT % 73.9 % (42.8-82.8); PLATELET COUNT 197 10^3/uL (134-434); RBC 3.59 M/mm3 (3.60-5.2); RDW 15.9 % (11.6-15.6); WHITE BLOOD COUNT 7.3 K/mm3 (4.0-10.0)
[2025-01-20 11:12] LABS: POTASSIUM 4.5 mmol/L (3.5-5.1)
[2025-01-20 11:14] LABS: BLOOD UREA NITROGEN 46.7 mg/dL (7-18); CALCIUM 8.9 mg/dL (8.5-10.1)
[2025-01-20 11:18] LABS: CREATININE 1.3 mg/dL (0.55-1.3)
[2025-01-20 14:03] VITALS: BP 140/62; PULSE 72; TEMP 98.2
== END 2025-01-20 14:17 | disposition short-term general hospital (02) | DRG 280 ==
LOC: JER 05:18 → JERBED 08:34 → J4W 01-18 00:07
PROVIDERS: ADMIT Internal Medicine; ATTEND Family Medicine
DX: I21.4 Non-ST elevation (NSTEMI) myocardial infarction (principal); J96.01 Acute respiratory failure with hypoxia; I25.10 Atherosclerotic heart disease of native coronary artery without angina pectoris; I10 Essential (primary) hypertension; E11.42 Type 2 diabetes mellitus with diabetic polyneuropathy; E78.5 Hyperlipidemia, unspecified; E11.621 Type 2 diabetes mellitus with foot ulcer; L97.529 Non-pressure chronic ulcer of other part of left foot with unspecified severity; E11.51 Type 2 diabetes mellitus with diabetic peripheral angiopathy without gangrene
CPT/HCPCS: 0241U-QW; 36415; 71045-TC-FY; 71275-TC; 73030-TC-RT-FY; 80048; 80053; 80061; 82728; 82962; 83540; 83550; 83735; 83880; 84100; 84443; 84484; 85025; 85520; 85610; 85730; 90656; 90677; 93005; 93010; 93306-TC; 93971-TC; 97597; 99285-25; G0008; G0009; J1644